=== PATIENT | male | born 1970 | race Caucasian/White ===

== ENCOUNTER 2017-08-24 12:42 | Emergency (ER) | payer SELFPAY ==
[2017-08-24 12:50] VITALS: BP 124/74; BMI 23.6
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
[2017-08-24 14:13] LABS: BASOPHILS % (AUTO) 0.4 % (0.2-1.0); EOSINOPHILS # (AUTO) 0.2 x10^3/uL (0.0-0.2); EOSINOPHILS % (AUTO) 4.3 % (0.9-2.9); HEMATOCRIT 41.9 % (42.0-54.0); HEMOGLOBIN 14.9 g/dL (13.5-18.0); LYMPHOCYTES # (AUTO) 1.4 X10^3/uL (1.3-2.9); LYMPHOCYTES % (AUTO) 30.4 % (21.0-51.0); MEAN CORPUSCULAR HEMOGLOBIN 33.5 pg (27.0-34.0); MEAN CORPUSCULAR HGB CONC 35.6 g/dL (33.0-35.0); MEAN CORPUSCULAR VOLUME 94.1 fL (80.0-100.0); MEAN PLATELET VOLUME 8.5 fL (7.4-11.0); MONOCYTES # (AUTO) 0.4 x10^3/uL (0.3-0.8); MONOCYTES % (AUTO) 8.7 % (0.0-13.0); NEUTROPHILS # (AUTO) 2.5 x10^3/uL (2.2-4.8); NEUTROPHILS % (AUTO) 56.2 % (42.0-75.0); PLATELET COUNT 55 X10^3/uL (150.0-450.0); RED BLOOD COUNT 4.45 X10^6/uL (4.7-6.0); RED CELL DISTRIBUTION WIDTH 14.9 % (11.6-16.5); WHITE BLOOD COUNT 4.5 X10^3/uL (3.6-10.0)
[2017-08-24 14:20] LABS: ALANINE AMINOTRANSFERASE 202 Units/L (12-78); ALBUMIN 3.4 g/dL (3.4-5.0); ALKALINE PHOSPHATASE 119 Units/L (46-116); AMYLASE 81 Units/L (25-115); ASPARTATE AMINO TRANSFERASE 199 Units/L (15-37); BLOOD ALCOHOL < 3 mg/dL (0-19.9); BLOOD UREA NITROGEN 13 mg/dL (7-18); CALCIUM 8.2 mg/dL (8.5-10.1); CARBON DIOXIDE 27.2 mmol/L (21-32); CHLORIDE 105 mmol/L (98-107); COR NA(FOR HYPERGLY) 138 mmol/L (136-145); CREATININE 0.89 mg/dL (0.70-1.30); LIPASE 247 Units/L (73-393); SODIUM 138 mmol/L (136-145); TOTAL PROTEIN 6.6 g/dL (6.4-8.2); eGFR BLACK RACES > 60 (>60); eGFR NON BLACK RACES > 60 (>60)
[2017-08-24 14:42] LABS: BILIRUBIN,URINE 2+ (NEGATIVE); BLOOD/HEMOGLOBIN,URINE NEGATIVE (NEGATIVE); GLUCOSE, URINE NEGATIVE (NEGATIVE); KETONES,URINE NEGATIVE (NEGATIVE); LEUKOCYTE ESTERASE ,URINE 2+ (NEGATIVE); NITRITES,URINE NEGATIVE (NEGATIVE); PH,URINE 6.5 (5.0 - 8.0); PROTEIN,URINE 1+ (NEGATIVE); UROBILINOGEN,URINE 4+ (NORMAL)
[2017-08-24 14:53] LABS: APPEARANCE,URINE SLIGHTLY HAZY (CLEAR); COLOR,URINE ORANGE (YELLOW)
[2017-08-24 14:54] LABS: BACTERIA,URINE TRACE /HPF (NEGATIVE); RBC,URINE NONE SEEN /HPF (NONE SEEN); SQUAMOUS EPITHELIAL CELL,UR FEW /HPF (NEGATIVE)
[2017-08-24] MEDS ORDERED: CHRONULAC PO STA (15:21)
[2017-08-24] MEDS ORDERED: CHRONULAC ONE (15:30)
== END 2017-08-24 15:53 | disposition home or self-care (01) ==
LOC: ER 12:55
DX: F10.10 Alcohol abuse, uncomplicated (principal); K72.90 Hepatic failure, unspecified without coma; E72.20 Disorder of urea cycle metabolism, unspecified; K74.60 Unspecified cirrhosis of liver; F15.10 Other stimulant abuse, uncomplicated
CPT/HCPCS: 36415; 80053; 80307; 81001; 82140; 82150; 83690; 85025; 99282; G0434; G6040

== ENCOUNTER 2018-12-11 14:30 | Inpatient (IN) ==
[2018-12-11] MEDS ORDERED: ZOSYN VIAL 3.375 GRAMS 3.375 G in NS 100 ML IV + SPIKE MINIBAG* 100 ML IV ONE (14:42)
[2018-12-11] MEDS ORDERED: VANCOMYCIN HCL 1 GM VIAL 1 G in D5W 250 ML IV 250 ML IV ONE (14:42)
--- NOTE | 2018-12-11 14:42 | DR.EXTPAIN ---
HPI Time seen Time Seen by Provider: 12/11/18 14:36 PCP Primary Care Physician: YORDY Complaint/Symptoms Chief Complaint Doctor Comments: Pt presented for right foot and leg pain. 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 He reports for the past 3-4d having drainage from wound site and now increase swelling, warmth, pain up to his knee. The pain is 10/10. Reports some chills, but denies any fever, sob, cp. Chief Complaint:: PT CUT THE OUTSIDE OF HIS RIGHT HEEL WITH A PIECE OF TILE ONE WEEK AGO. SINCE THEN HE HAS NOTICED THE ENTIRE LEG HAS BEEN SWOLLEN AND HE HAS REDNESS ALL THE WAY UP INTO THE RIGHT THIGH. PT STATES THAT THE LEG ONLY HURTS HIM WHEN HE INITIALLY GETS UP OUT OF BED IN THE MORNING AND THE DAY PROGRESSES HE DOESN'T HAVE ANY PAIN. Self Treatment fo Chief Complaint: TOOK MOTRIN WITH NO RELIEF Nurses notes reviewed Nurses Notes Review: Yes Source History Provided: Patient Mode of arrival Mode of Arrival: Ambulatory Timing Onset of Chief Complaint: 12/03/18 Context History of: None Associated signs and symptoms Associated Signs and Symptoms: [place]ie[place] Body and Swelling PMH PMH Past Medical History: No Past Surgical History: No Family History History of Family Medical Conditions: Yes Family Medical History: Diabetes Mellitus, [place], Coronary Artery Disease and Hypertension Social History Does patient currently use any type of tobacco product: Yes Have you used tobacco products in the last 12 months: Yes Type of Tobacco Use: Cigarettes Does any household member use tobacco: Yes Alcohol Use: Occasionally Do you use any recreational Drugs:: No Lives With: Family Lives Where: Home infectious screening In the last 2 months have you had wt loss of >10#?: NO Have you had fever, night sweats or hemotysis?: No Have you traveled outside the country in the last 6 months?: No Isolation: Standard ROS Review of Systems Constitutional: negative Chills, Fever and Loss of Appetite Eyes: negative Blurred Vision ENTM: negative Nose Congestion Respiratoy: negative Short of Breath Cardiovascular: negative Chest Pain Gastrointestinal/Abdominal: negative Abdominal Pain, Nausea and Vomiting Genitourinary: negative Hematuria Neurological: negative Numbness, Weakness and Speech Problem Musculoskeletal: Joint Pain, Joint Swelling, Muscle Pain, Right, Ankle and Foot Integumentary: Rash and Wound (right lateral heel) Hematologic/Lymphatic: negative Lymphadenopathy Endocrine: negative Decreased Appetite Psychiatric: negative Depression All Other Systems: Reviewed and Negative PE Vital Signs Vitals: Temperature 98.6 F Pulse Rate 115 Respiratory Rate 20 Blood Pressure 145/78 O2 Sat by Pulse Oximetry 98 General Limitations: No Limitations Head Head Exam: Normal Inspection and Normocephalic Eyes Eye exam: Normal Appearance and EOMI; negative Scleral Icterus ENT ENT Exam: Normal Exam, Normal Oropharynx and Mucous Membranes Moist Neck Neck Exam: Normal Inspection and Full ROM Respiratory Respiratory Exam: Normal Lung Sounds Bilat Respiratory Exam: Bilateral: Clear to Auscultation Cardiovascular Cardiovascular Exam: Regular Rate, Tachycardia and Normal Heart Sounds Abdominal Exam Abdominal Exam: Soft; negative Tenderness Extremities Extremities Exam: Tenderness (right foot/ankle), Normal Capillary Refill and Joint Swelling (right foot/ankle); negative Normal Inspection and Calf Tenderness Lower Extremities Lower Leg Exam: Tenderness and Erythema (right) Ankle Exam: Swelling (right) and Erythema Foot/Toe Exam: Tenderness, Swelling and Erythema Gait Exam: Observed and Normal Back Back Exam: Normal Inspection and Full ROM Neurological Neurological Exam: Alert, Oriented X3, Normal Gait and Reflexes Normal; negative Motor Sensory Deficit Psychiatric Psychiatric Exam: Normal Affect and Normal Mood Skin Skin Exam: Warm, Dry, Intact and Erythema Type of Lesion: Foreign Body Distribution: RLE Description: Erythematous and Swelling; negative Discharge, Fluctuant and Indurated Front/Back of Body, Lg ([place]): 1. small puncture wound with surrounding warmth, tenderness, erythema, swelling extending to knee. MDM Differential Diagnosis Differential Diagnosis: Other (cellulitis, retain FB, OM, abscess) COURSE Reevaluation 1st: Unchanged (pt has no pain. d/w results. Will continue IVF hydration, IV abx and will admit.) Consultation Consultation Comments: 15:[address] Burch and will admit and see in hospital. Education/Counseling Education/Counseling: Patient, Education and Counseling Educated On: Treatment, Diagnosis, Prognosis and Needs for Follow Up (pcp) ROR Labs Reviewed Laboratory Results Reviewed?: Yes Result Diagrams: 12/11/18 15:01 12/11/18 15:01 Laboratory: 12/11/18 15:17 Foot - Right Gram Stain - Final WBC 7.5 X10^3/uL (3.6-10.0) 12/11/18 15:01 RBC 4.21 X10^6/uL (4.7-6.0) L 12/11/18 15:01 Hgb 14.6 g/dL (13.5-18.0) 12/11/18 15:01 Hct 42.0 % (42.0-54.0) 12/11/18 15:01 MCV 99.7 fL (80.0-100.0) 12/11/18 15: MCH 34.8 pg (27.0-34.0) H 12/11/18 15: MCHC 34.9 g/dL (33.0-35.0) 12/11/18 15: RDW 14.6 % (11.6-16.5) 12/11/18 15: Plt Count 43 X10^3/uL (150.0-450.0) L 12/11/18 15: Plt Count Comment Decreased (ADEQUATE) 12/11/18 15: MPV 8.8 fL (7.4-11.0) 12/11/18 15:01 Neut % (Auto) 79.8 % (42.0-75.0) H 12/11/18 15:01 Lymph % (Auto) 11.4 % (21.0-51.0) L 12/11/18 15:01 [place] % (Auto) 7.4 % (0.0-13.0) 12/11/18 15: Eos % (Auto) 1.2 % (0.9-2.9) 12/11/18 15:01 Baso % (Auto) 0.2 % (0.2-1.0) 12/11/18 15:01 Neut # (Auto) 6.0 x10^3/uL (2.2-4.8) H 12/11/18 15:01 Lymph # (Auto) 0.8 X10^3/uL (1.3-2.9) L 12/11/18 15:01 [place] # (Auto) 0.6 x10^3/uL (0.3-0.8) 12/11/18 15:01 Eos # (Auto) 0.1 x10^3/uL (0.0-0.2) 12/11/18 15:01 Baso # (Auto) 0.0 X10^3/uL (0.0-0.1) 12/11/18 15:01 Absolute Nucleated RBC 0.0 /100WBC 12/11/18 15:01 Plt Morphology Comment Normal (NORMAL) 12/11/18 15:01 RBC Morphology Normal (NORMAL) 12/11/18 15:01 Sodium 138 mmol/L (136-145) 12/11/18 15:01 Corrected Sodium 144 mmol/L (136-145) 12/11/18 15:01 Potassium 4.5 mmol/L (3.5-5.1) 12/11/18 15:01 Chloride 105 mmol/L (98-107) 12/11/18 15:01 Carbon Dioxide 23.6 mmol/L (21-32) 12/11/18 15:01 BUN 16 mg/dL (7-18) 12/11/18 15:01 Creatinine 1.17 mg/dL (0.70-1.30) 12/11/18 15:01 Est GFR (MDRD) Af Amer > 60 (>60) 12/11/18 15:01 Est GFR (MDRD) Non-Af > 60 (>60) 12/11/18 15:01 Glucose 353 mg/dL (65-99) H 12/11/18 15:01 Hemoglobin A1c 5.5 % 12/11/18 15:01 Calcium 8.2 mg/dL (8.5-10.1) L 12/11/18 15:01 C-Reactive Protein 46.80 mg/L (0-3.0) H 12/11/18 15:01 Acetone, Semi-Quant Negative (NEGATIVE) 12/11/18 15:01 Other Results Comments: WBC 7.5 PLt 43, Glu 353 CRP 46, acetone negative, ESR pending XRAY XRAY Interpreted by: Radiologist XRAY Findings: right foot: STS w/o FB or gas Opioid Opioid Risk Tool Total: 0 Total Score Risk Category: Low Risk Copyright: Ciaran BRENNAN predicting aberrant behaviors Diagnosis Discharge Problem: Cellulitis of foot, right, Thrombocytopenia, New onset type 2 diabetes mellitus, Acute hyperglycemia Instructions Forms: Excuse From Work ADDITIONAL NOTES Additional Notes Additional Notes: I have personally reviewed your medications, lab results, imaging and time was spent discussion results. Patient educated on their health issue. They verbalized their understanding and agreed with plan of care. Condition: Stable Disposition: Admission
[2018-12-11] MEDS ORDERED: NS 100 ML IV + SPIKE MINIBAG* 100 ML ONE (15:04)
[2018-12-11] MEDS ORDERED: NS 250 ML IV 250 ML ONE ×3 (15:04→21:28)
[2018-12-11] MEDS ORDERED: ZOSYN VIAL 3.375 GRAMS IV ONE (15:04)
[2018-12-11] MEDS ORDERED: VANCOMYCIN HCL 1 GM VIAL ONE ×2 (15:04→21:28)
--- NOTE | 2018-12-11 15:07 | RAD ---
Three views of the right foot. Indication: Right foot pain with lateral wound Findings: There is soft tissue swelling within the lateral foot; however there is no soft tissue gas or foreign body identified. No acute fracture or dislocation. No cortical destruction or periosteal reaction identified to suggest osteomyelitis. Lisfranc joint is normal. Impression: Soft tissue swelling within the lateral foot without evidence of fracture, dislocation, soft tissue gas or radiopaque foreign body within the right foot. Reported By:
[2018-12-11 15:20] LABS: BASOPHILS % (AUTO) 0.2 % (0.2-1.0); EOSINOPHILS # (AUTO) 0.1 x10^3/uL (0.0-0.2); EOSINOPHILS % (AUTO) 1.2 % (0.9-2.9); HEMOGLOBIN 14.6 g/dL (13.5-18.0); LYMPHOCYTES # (AUTO) 0.8 X10^3/uL (1.3-2.9); LYMPHOCYTES % (AUTO) 11.4 % (21.0-51.0); MEAN CORPUSCULAR HEMOGLOBIN 34.8 pg (27.0-34.0); MEAN CORPUSCULAR HGB CONC 34.9 g/dL (33.0-35.0); MEAN CORPUSCULAR VOLUME 99.7 fL (80.0-100.0); MEAN PLATELET VOLUME 8.8 fL (7.4-11.0); MONOCYTES # (AUTO) 0.6 x10^3/uL (0.3-0.8); MONOCYTES % (AUTO) 7.4 % (0.0-13.0); NEUTROPHILS % (AUTO) 79.8 % (42.0-75.0); PLATELET COUNT 43 X10^3/uL (150.0-450.0); RED BLOOD COUNT 4.21 X10^6/uL (4.7-6.0); RED CELL DISTRIBUTION WIDTH 14.6 % (11.6-16.5); WHITE BLOOD COUNT 7.5 X10^3/uL (3.6-10.0)
[2018-12-11 15:21] LABS: BLOOD UREA NITROGEN 16 mg/dL (7-18); CALCIUM 8.2 mg/dL (8.5-10.1); CARBON DIOXIDE 23.6 mmol/L (21-32); CHLORIDE 105 mmol/L (98-107); COR NA(FOR HYPERGLY) 144 mmol/L (136-145); CREATININE 1.17 mg/dL (0.70-1.30); SODIUM 138 mmol/L (136-145); eGFR NON BLACK RACES > 60 (>60)
[2018-12-11 15:27] LABS: PLATELET MORPHOLOGY COMMENT NORMAL (NORMAL)
[2018-12-11] MEDS ORDERED: NS 1000 ML 1,000 ML IV ONE (15:31)
[2018-12-11] MEDS ORDERED: HumuLIN R IV ONE (15:32)
[2018-12-11] MEDS ORDERED: NS 1000 ML 1,000 ML ONE ×2 (15:58→20:58)
[2018-12-11] MEDS ORDERED: HumuLIN R ONE (15:59)
[2018-12-11 17:48] LABS: ERYTHROCYTE SEDIMENTATION RATE 3 MM/HOUR (0-15)
[2018-12-11] MEDS ORDERED: HumaLOG SC PRN (17:58)
[2018-12-11] MEDS ORDERED: HumuLIN R SUBCUT PRN (20:23)
[2018-12-11] MEDS ORDERED: VANCOMYCIN HCL 1 GM VIAL 1 G in D5W 250 ML IV 250 ML IV SCH (21:00)
[2018-12-11] MEDS: SNACK - Diabetic Appropriate PO SCH (21:25)
[2018-12-11] MEDS: ZOSYN VIAL 3.375 GRAMS 3.375 G in NS 100 ML IV + SPIKE MINIBAG* 100 ML IV SCH (21:27)
[2018-12-11] MEDS ORDERED: VANCOMYCIN HCL 500 MG VIAL ONE (21:28)
[2018-12-11] MEDS ORDERED: VANCOMYCIN HCL 500 MG VIAL 250 MG, VANCOMYCIN HCL 1 GM VIAL 1 G in D5W 250 ML IV 250 ML IV SCH (22:00)
[2018-12-11] MEDS ORDERED: ZOSYN VIAL 3.375 GRAMS IV SCH (22:00)
[2018-12-12] MEDS ORDERED: VANCOMYCIN HCL 500 MG VIAL 250 MG, VANCOMYCIN HCL 1 GM VIAL 1 G in D5W 250 ML IV 250 ML IV SCH ×3
[2018-12-12 05:08] LABS: BASOPHILS % (AUTO) 0.5 % (0.2-1.0); BLOOD UREA NITROGEN 11 mg/dL (7-18); CALCIUM 7.4 mg/dL (8.5-10.1); CARBON DIOXIDE 23.7 mmol/L (21-32); CHLORIDE 107 mmol/L (98-107); COR NA(FOR HYPERGLY) 143 mmol/L (136-145); CREATININE 0.95 mg/dL (0.70-1.30); EOSINOPHILS # (AUTO) 0.2 x10^3/uL (0.0-0.2); EOSINOPHILS % (AUTO) 3.4 % (0.9-2.9); HEMOGLOBIN 13.3 g/dL (13.5-18.0); LYMPHOCYTES # (AUTO) 1.2 X10^3/uL (1.3-2.9); LYMPHOCYTES % (AUTO) 21.3 % (21.0-51.0); MEAN CORPUSCULAR VOLUME 100.2 fL (80.0-100.0); MEAN PLATELET VOLUME 9.8 fL (7.4-11.0); MONOCYTES # (AUTO) 0.5 x10^3/uL (0.3-0.8); MONOCYTES % (AUTO) 8.6 % (0.0-13.0); NEUTROPHILS # (AUTO) 3.7 x10^3/uL (2.2-4.8); NEUTROPHILS % (AUTO) 66.2 % (42.0-75.0); PLATELET COUNT 46 X10^3/uL (150.0-450.0); RED BLOOD COUNT 3.79 X10^6/uL (4.7-6.0); RED CELL DISTRIBUTION WIDTH 14.7 % (11.6-16.5); SODIUM 138 mmol/L (136-145); WHITE BLOOD COUNT 5.6 X10^3/uL (3.6-10.0); eGFR NON BLACK RACES > 60 (>60)
[2018-12-12 05:21] LABS: PLATELET MORPHOLOGY COMMENT NORMAL (NORMAL)
[2018-12-12] MEDS: ZOSYN VIAL 3.375 GRAMS 3.375 G in NS 100 ML IV + SPIKE MINIBAG* 100 ML IV SCH ×3 (05:57→22:02)
[2018-12-12] MEDS: HumuLIN R SUBCUT PRN ×3 (06:00→17:25)
[2018-12-12 08:57] VITALS: BMI 27.8
[2018-12-12] MEDS ORDERED: PHARMACY CONSULT - DOSE _____ XX SCH (09:00)
[2018-12-12] MEDS ORDERED: PREVNAR 13 IM ONE (09:00)
--- NOTE | 2018-12-12 13:41 | DR.H&P ---
H&P - History & Physical for Day of: H&P Date: 12/11/18 - Chief Complaint Chief Complaint: R LEG PAIN, REDNESS AND SWELLING, RED STREAKING UP TO RIGHT THIGH - History of Present Illness History of Present Illness: 48 WM ER ADMISSION WITH CO HAD CUT THE OUTSIDE OF HIS RIGHT HEEL WITH A PIECE OF TILE ONE WEEK AGO. SINCE THEN HE HAS NOTICED THE ENTIRE LEG HAS BEEN SWOLLEN AND HE HAS REDNESS ALL THE WAY UP INTO THE RIGHT THIGH. PT STATES THAT THE LEG ONLY HURTS HIM WHEN HE INITIALLY GETS UP OUT OF BED IN THE MORNING AND THE DAY PROGRESSES HE DOESN'T HAVE ANY PAIN. PT DENIES ANY KNOWN JOINT INJURY, DENIES HX OF HTN OR DM. PT ADMITTED FOR TREATMENT OF RLE CELLULITIS. - Past Medical History Past Medical History: GERD. denies: CHF, Coronary Artery Disease, Diabetes, Hypertension - Family History Family Medical History: Diabetes Mellitus, [place], Coronary Artery Disease, Hypertension - Social History Does patient currently use any type of tobacco product: Yes Have you used tobacco products in the last 12 months: Yes Type of Tobacco Use: Cigarettes How many years tobacco product used: 20 Does any household member use tobacco: Yes Alcohol Use: Occasionally Drug Use: None - Medications Home Medications: No Known Drug Allergies Allergy (Verified 08/24/17 12:43) CONTINUE taking the following medications NK 12/11/18 [History] - Review of Systems Constitutional: denies: Fever Eyes: No Symptoms Reported ENT: No Symptoms Reported Respiratory: No Symptoms Reported Cardiovascular: Edema Gastrointestinal: No Symptoms Reported Genitourinary: No Symptoms Reported Musculoskeletal: Leg Pain Skin: Wound Neurological: No Symptoms Reported - Physical Exam Vital Signs: Temperature 98.4 F Pulse Rate [Right Brachial] 96 Pulse Rate 115 Respiratory Rate 18 Blood Pressure [Right Arm] 140/65 Blood Pressure 145/78 O2 Sat by Pulse Oximetry 96 Oriented: Normal Eyes: Normal Ear: Normal Nose: Normal Throat: Normal Respiratory: Clear Throughout Cardiovascular: Edema (RLE EDEMA +2) Skin: Red, Tender (RLE, FOOT AND ANKLE, EDEMA UP TO [place]OREL AREA, RED STREAKING FROM ANKLE TO RIGHT INNER THIGH), Hot Musculoskeletal: Right, Leg, Swelling, Tender Psychiatric: Anxiety Affect: Anxious Speech Pattern: Clear, Appropriate - Assessment/Plan (1) Cellulitis of foot, right Status: Acute Plan: ADMIT BLOOD CULTURES, ELEVATE RLE. XRAY RLE IN ER. IV VANCOMYCIN, PAIN CONTROL. BLOOD SUGAR CONTROL (2) Hyperglycemia Status: Acute Plan: SSI COVERAGE, MONITOR BLOOD SUGAR. A1C 5.5 - Allergies Allergies/Adverse Reactions: Allergies Allergy/AdvReac Type Severity Reaction Status Date / Time No Known Drug Allergies Allergy Verified 08/24/17 12:43
[2018-12-12] MEDS: VANCOMYCIN HCL 1 GM VIAL 1 G in NS 250 ML IV 250 ML IV SCH ×2 (14:34→22:02)
--- NOTE | 2018-12-12 15:26 | PCM.PROG ---
Progress Note - Progress Note for Day of Date of Exam: 12/12/18 - Subjective Subjective: 48 WM ER ADMISSION ON 06/13 WITH CO RLE PAIN, REDNESS AND SWELLING. PT HAD REPORT OF CUT BY PIECE OF TILE ABOUT 1 WEEK PRIOR TO ONSET OF EDEMA AND CELLULITIS. PT HAD XRAY OF RLE IN ER AND PT DENIES ANY JOINT INJURY, KNEE OR ANKLE. PT WAS STARTED ON IV VANCOMYCIN IN THE ER. PT WBC 5.6, CRP DECREASED TO 37.7 TODAY. PT CONTINUES WITH REDNESS FROM LOWER LEG TO RIGHT INNER THIGH. PT HAS ELEVATED BLOOD SUGAR WITH NO HISTORY OF DIABETES. PT A1C 5.5. HE IS CURRENTLY ON SSI, WILL START ON PO METFORMIN AND ENCOURAGE ORAL HYDRATION. PLAN TO OBTAIN LE US R/O DVT AND LOVENOX PROPHALAXIS - Past Medical Family Social History Past Med/Fam/Surg Hx: No changes since H&P Allergies: Allergies No Known Drug Allergies Allergy (Verified 08/24/17 12:43) - Review of Systems ROS: No change since H&P - Vital Signs and I&O's Vital Signs: Temperature 98.4 F Pulse Rate [Right Brachial] 96 Pulse Rate 115 Respiratory Rate 18 Blood Pressure [Right Arm] 140/65 Blood Pressure 145/78 O2 Sat by Pulse Oximetry 96 Intake and Output: Intake & Output 12/10/18 12/11/18 12/12/18 12/13/18 11:59 11:59 11:59 11:59 Intake Total 1510 / 1510 Balance 1510 / 1510 - Physical Exam Oriented: Normal Eyes: Normal Ear: Normal Nose: Normal Throat: Normal Respiratory: Normal Cardiovascular: Edema (RLE EDEMA +2) Tenderness: Normal Skin: Red, Tender (RLE, FOOT AND ANKLE, EDEMA UP TO MOREL AREA, RED STREAKING FROM ANKLE TO RIGHT INNER THIGH), Hot Musculoskeletal: Right, Leg, Swelling, Tender Psychiatric: Anxiety Affect: Anxious Speech Pattern: Clear, Appropriate - Laboratory and Diagnostics Result Diagrams: 12/12/18 04:43 12/12/18 04:43 Labs: 12/11/18 15:17 Foot - Right Gram Stain - Final 12/11/18 15:17 Foot - Right Wound Culture - Preliminary Laboratory WBC 5.6 X10^3/uL (3.6-10.0) 12/12/18 04:43 RBC 3.79 X10^6/uL (4.7-6.0) L 12/12/18 04:43 Hgb 13.3 g/dL (13.5-18.0) L 12/12/18 04:43 Hct 38.0 % (42.0-54.0) L 12/12/18 04:43 MCV 100.2 fL (80.0-100.0) H 12/12/18 04:43 MCH 35.0 pg (27.0-34.0) H 12/12/18 04:43 MCHC 35.0 g/dL (33.0-35.0) 12/12/18 04:43 RDW 14.7 % (11.6-16.5) 12/12/18 04:43 Plt Count 46 X10^3/uL (150.0-450.0) L 12/12/18 04:43 Plt Count Comment Decreased (ADEQUATE) 12/12/18 04:43 MPV 9.8 fL (7.4-11.0) 12/12/18 04:43 Neut % (Auto) 66.2 % (42.0-75.0) 12/12/18 04:43 Lymph % (Auto) 21.3 % (21.0-51.0) 12/12/18 04:43 [place] % (Auto) 8.6 % (0.0-13.0) 12/12/18 04:43 Eos % (Auto) 3.4 % (0.9-2.9) H 12/12/18 04:43 Baso % (Auto) 0.5 % (0.2-1.0) 12/12/18 04:43 Neut # (Auto) 3.7 x10^3/uL (2.2-4.8) 12/12/18 04:43 Lymph # (Auto) 1.2 X10^3/uL (1.3-2.9) L 12/12/18 04:43 [place] # (Auto) 0.5 x10^3/uL (0.3-0.8) 12/12/18 04:43 Eos # (Auto) 0.2 x10^3/uL (0.0-0.2) 12/12/18 04:43 Baso # (Auto) 0.0 X10^3/uL (0.0-0.1) 12/12/18 04:43 Absolute Nucleated RBC 0.1 /100WBC 12/12/18 04:43 Plt Morphology Comment Normal (NORMAL) 12/12/18 04:43 RBC Morphology Normal (NORMAL) 12/12/18 04:43 ESR 3 MM/HOUR (0-15) 12/11/18 15:01 Sodium 138 mmol/L (136-145) 12/12/18 04:43 Corrected Sodium 143 mmol/L (136-145) 12/12/18 04:43 Potassium 4.1 mmol/L (3.5-5.1) 12/12/18 04:43 Chloride 107 mmol/L (98-107) 12/12/18 04:43 Carbon Dioxide 23.7 mmol/L (21-32) 12/12/18 04:43 BUN 11 mg/dL (7-18) 12/12/18 04:43 Creatinine 0.95 mg/dL (0.70-1.30) 12/12/18 04:43 Est GFR (MDRD) Af Amer > 60 (>60) 12/12/18 04:43 Est GFR (MDRD) Non-Af > 60 (>60) 12/12/18 04:43 Glucose 315 mg/dL (65-99) H 12/12/18 04:43 POC Glucose (mg/dL) 214 mg/dL (65-99) H 12/12/18 11:24 Hemoglobin A1c 5.5 % 12/11/18 15:01 Calcium 7.4 mg/dL (8.5-10.1) L 12/12/18 04:43 C-Reactive Protein 32.70 mg/L (0-3.0) H 12/12/18 04:43 Acetone, Semi-Quant Negative (NEGATIVE) 12/11/18 15:01 - Plan (1) Cellulitis of foot, right Status: Acute Plan: BLOOD CULTURES COLLECTED IN THE ER, ELEVATE RLE. XRAY RLE IN ER, WILL OBTAIN US RLE R/O DVT/PHLEBITIS. IV VANCOMYCIN, PAIN CONTROL. BLOOD SUGAR CONTROL (2) Hyperglycemia Status: Acute Plan: SSI COVERAGE, MONITOR BLOOD SUGAR. A1C 5.5
--- NOTE | 2018-12-12 16:02 | VAS ---
History: Right lower extremity edema and pain Study: Ultrasound of the deep veins of the lower extremity evaluated from the common femoral vein to the popliteal vein Findings: The deep veins are widely patent and show appropriate compression and augmentation. Impression: No evidence for right lower extremity deep venous thrombosis Reported By:
[2018-12-12] MEDS ORDERED: GLUCOPHAGE ONE (17:17)
[2018-12-12] MEDS: GLUCOPHAGE PO SCH (17:25)
[2018-12-12] MEDS ORDERED: SNACK - Diabetic Appropriate PO SCH (20:00)
[2018-12-12] MEDS: SNACK - Diabetic Appropriate PO SCH (21:06)
[2018-12-13 05:20] LABS: EOSINOPHILS # (AUTO) 0.2 x10^3/uL (0.0-0.2); HEMATOCRIT 39.6 % (42.0-54.0); HEMOGLOBIN 13.8 g/dL (13.5-18.0); LYMPHOCYTES # (AUTO) 1.3 X10^3/uL (1.3-2.9); LYMPHOCYTES % (AUTO) 29.2 % (21.0-51.0); MEAN CORPUSCULAR HGB CONC 34.9 g/dL (33.0-35.0); MEAN CORPUSCULAR VOLUME 100.3 fL (80.0-100.0); MEAN PLATELET VOLUME 9.7 fL (7.4-11.0); MONOCYTES # (AUTO) 0.5 x10^3/uL (0.3-0.8); MONOCYTES % (AUTO) 10.2 % (0.0-13.0); NEUTROPHILS # (AUTO) 2.4 x10^3/uL (2.2-4.8); NEUTROPHILS % (AUTO) 54.6 % (42.0-75.0); PLATELET COUNT 51 X10^3/uL (150.0-450.0); RED BLOOD COUNT 3.95 X10^6/uL (4.7-6.0); RED CELL DISTRIBUTION WIDTH 14.8 % (11.6-16.5); WHITE BLOOD COUNT 4.4 X10^3/uL (3.6-10.0)
[2018-12-13 05:35] LABS: ALANINE AMINOTRANSFERASE 20 Units/L (12-78); ALKALINE PHOSPHATASE 113 Units/L (46-116); ASPARTATE AMINO TRANSFERASE 32 Units/L (15-37); BLOOD UREA NITROGEN 11 mg/dL (7-18); CALCIUM 7.2 mg/dL (8.5-10.1); CARBON DIOXIDE 24.6 mmol/L (21-32); CHLORIDE 106 mmol/L (98-107); COR CA(FOR HYPOALB) 8.8 mg/dL (8.5-10.1); COR NA(FOR HYPERGLY) 139 mmol/L (136-145); CREATININE 0.84 mg/dL (0.70-1.30); SODIUM 137 mmol/L (136-145); TOTAL PROTEIN 4.8 g/dL (6.4-8.2); eGFR NON BLACK RACES > 60 (>60)
[2018-12-13] MEDS ORDERED: GLUCOPHAGE ONE ×2 (05:38→16:52)
[2018-12-13] MEDS ORDERED: POTASSIUM CHLORIDE LIQ 20 MEQ UDC PO PRN (05:54)
[2018-12-13] MEDS ORDERED: K-RIDER 10 MEQ/NS 100 ML 10 MEQ/100 ML BAG IV PRN (05:54)
[2018-12-13] MEDS ORDERED: MICRO K EXTEN CAP 10 MEQ PO PRN (05:54)
[2018-12-13] MEDS ORDERED: POTASSIUM CHL 40 MEQ/NS 0.45% 500 ML IV PRN (05:54)
[2018-12-13] MEDS ORDERED: POTASSIUM CHL 60 MEQ/NS 0.45% 500 ML IV PRN (05:54)
[2018-12-13] MEDS ORDERED: KLOR-CON PO PRN (05:54)
[2018-12-13] MEDS ORDERED: K-DUR TAB 20 MEQ PO PRN (05:54)
[2018-12-13] MEDS: VANCOMYCIN HCL 1 GM VIAL 1 G in NS 250 ML IV 250 ML IV SCH ×3 (06:31→21:01)
[2018-12-13] MEDS: GLUCOPHAGE PO SCH ×2 (06:31→18:20)
[2018-12-13] MEDS: ZOSYN VIAL 3.375 GRAMS 3.375 G in NS 100 ML IV + SPIKE MINIBAG* 100 ML IV SCH ×3 (06:32→21:01)
[2018-12-13 07:28] LABS: AMYLASE 70 Units/L (25-115); LIPASE 468 Units/L (73-393)
[2018-12-13] MEDS ORDERED: NS 100 ML IV 100 ML ONE (10:06)
[2018-12-13] MEDS: MAGNESIUM SULFATE 1 GRAM/100 mL PREMIX 1 GM/100 ML BAG IV PRN ×3 (10:51→13:00)
--- NOTE | 2018-12-13 12:06 | CT ---
History: Pain Exam: CT abdomen and pelvis with contrast Comparison: None Technique: Axial spiral images were obtained from lung bases through the pubic symphysis after administration of IV and oral contrast. Automated dose control was utilized. Findings: There are small bibasilar pleural effusions and associated bibasilar opacities posteriorly . The liver is small and cirrhotic in appearance with a nodular contour to the capsule. The gallbladder is normal size with a calcification near the neck region with no wall thickening. The spleen measures 17 cm in length and is normal density with extensive large collateral vessels along the hilar region of the spleen extending inferiorly and laterally throughout the upper abdomen . The bile ducts and pancreas are normal. The adrenals are normal. Kidneys are normal size and function normally with no hydronephrosis or renal masses and no urinary obstruction. The ureters are normal caliber . The appendix is normal . The bladder is unremarkable. There is mild feces scattered in the colon with no bowel obstruction. No adenopathy or ascites is seen. The bones are intact with no aggressive osseous lesion seen. IMPRESSION: Cholelithiasis. Small cirrhotic liver and moderately severe splenomegaly with collateral vessels throughout the upper abdomen suggestive of severe portal hypertension. No hydronephrosis or urinary obstruction . Mild constipation with no bowel obstruction. Small bibasilar pleural effusions and associated bibasilar atelectasis or infiltrates posteriorly. Reported By:
[2018-12-13] MEDS ORDERED: PHARMACY COMMENT IV NR (13:30)
[2018-12-13 14:55] LABS: CREATININE 0.88 mg/dL (0.70-1.30); VANCOMYCIN,TROUGH 6.3 ug/mL (15-20)
[2018-12-13] MEDS: HumuLIN R SUBCUT PRN ×2 (18:37→20:53)
[2018-12-13] MEDS: SNACK - Diabetic Appropriate PO SCH (20:54)
[2018-12-14 05:01] LABS: BASOPHILS % (AUTO) 0.8 % (0.2-1.0); EOSINOPHILS # (AUTO) 0.2 x10^3/uL (0.0-0.2); EOSINOPHILS % (AUTO) 6.2 % (0.9-2.9); HEMATOCRIT 40.2 % (42.0-54.0); HEMOGLOBIN 14.1 g/dL (13.5-18.0); LYMPHOCYTES # (AUTO) 1.1 X10^3/uL (1.3-2.9); MEAN CORPUSCULAR HEMOGLOBIN 34.6 pg (27.0-34.0); MEAN CORPUSCULAR HGB CONC 35.1 g/dL (33.0-35.0); MEAN CORPUSCULAR VOLUME 98.6 fL (80.0-100.0); MEAN PLATELET VOLUME 9.3 fL (7.4-11.0); MONOCYTES # (AUTO) 0.4 x10^3/uL (0.3-0.8); MONOCYTES % (AUTO) 9.6 % (0.0-13.0); NEUTROPHILS # (AUTO) 2.2 x10^3/uL (2.2-4.8); NEUTROPHILS % (AUTO) 55.4 % (42.0-75.0); PLATELET COUNT 57 X10^3/uL (150.0-450.0); RED BLOOD COUNT 4.08 X10^6/uL (4.7-6.0); RED CELL DISTRIBUTION WIDTH 14.3 % (11.6-16.5); WHITE BLOOD COUNT 3.9 X10^3/uL (3.6-10.0)
[2018-12-14 05:12] LABS: ALANINE AMINOTRANSFERASE 20 Units/L (12-78); ALKALINE PHOSPHATASE 123 Units/L (46-116); ASPARTATE AMINO TRANSFERASE 34 Units/L (15-37); BLOOD UREA NITROGEN 9 mg/dL (7-18); CALCIUM 7.4 mg/dL (8.5-10.1); CHLORIDE 106 mmol/L (98-107); COR NA(FOR HYPERGLY) 139 mmol/L (136-145); CREATININE 0.81 mg/dL (0.70-1.30); MAGNESIUM 1.8 mg/dL (1.7-2.9); SODIUM 137 mmol/L (136-145); TOTAL PROTEIN 4.8 g/dL (6.4-8.2); eGFR NON BLACK RACES > 60 (>60)
[2018-12-14] MEDS: VANCOMYCIN HCL 1 GM VIAL 1 G in NS 250 ML IV 250 ML IV SCH ×2 (06:07→15:11)
[2018-12-14] MEDS: ZOSYN VIAL 3.375 GRAMS 3.375 G in NS 100 ML IV + SPIKE MINIBAG* 100 ML IV SCH ×3 (06:08→21:00)
[2018-12-14] MEDS: HumuLIN R SUBCUT PRN ×3 (06:09→17:00)
[2018-12-14 07:46] LABS: AMYLASE 89 Units/L (25-115); LIPASE 590 Units/L (73-393)
[2018-12-14] MEDS ORDERED: BACTRIM DS TAB PO ONE (12:19)
[2018-12-14] MEDS: BACTRIM DS TAB PO SCH ×2 (12:20→20:37)
[2018-12-14] MEDS ORDERED: LASIX IVP ONE ×2 (13:32→16:53)
--- NOTE | 2018-12-14 13:38 | PCM.PROG ---
Progress Note - Progress Note for Day of Date of Exam: 12/13/18 - Subjective Subjective: 48 WM ER ADMISSION ON 06/13 WITH CO RLE PAIN, REDNESS AND SWELLING. PT HAD REPORT OF CUT BY PIECE OF TILE ABOUT 1 WEEK PRIOR TO ONSET OF EDEMA AND CELLULITIS. PT HAD XRAY OF RLE IN ER AND PT DENIES ANY JOINT INJURY, KNEE OR ANKLE. PT WAS STARTED ON IV VANCOMYCIN IN THE ER.PT CONTINUES WITH REDNESS FROM LOWER LEG TO RIGHT INNER THIGH. PT HAS ELEVATED BLOOD SUGAR WITH NO HISTORY OF DIABETES. PT A1C 5.5. HE IS CURRENTLY ON SSI AND METFORMIN. PT HAS HEPATOMEGALY AND CT ABD PELVIS ORDERED FOR TODAY WITH AMYLASE AND LIPASE. PT REPORTS HX OF ETOH ABUSE AND REPORTS HE WAS TOLD HE HAD LIVER PROBLEMS IN THE PAST. PLATELETS 51., CHECKED INR AND NO DVT PROPHALAXIS USED - Past Medical Family Social History Past Med/Fam/Surg Hx: No changes since H&P Allergies: Allergies No Known Drug Allergies Allergy (Verified 08/24/17 12:43) - Review of Systems ROS: No change since H&P - Vital Signs and I&O's Vital Signs: Temperature 98.7 F Pulse Rate [Right Brachial] 91 Pulse Rate 115 Respiratory Rate 18 Blood Pressure [Right Arm] 143/76 Blood Pressure 145/78 O2 Sat by Pulse Oximetry 96 Intake and Output: Intake & Output 12/12/18 12/13/18 12/14/18 12/15/18 11:59 11:59 11:59 11:59 Intake Total 1510 / 1510 1740 / 1740 1530 / 1530 Balance 1510 / 1510 1740 / 1740 1530 / 1530 - Physical Exam Oriented: Normal Eyes: Normal Ear: Normal Nose: Normal Throat: Normal Respiratory: Normal Cardiovascular: Edema (RLE EDEMA +2) Palpation: Liver Enlarged Tenderness: RUQ, Mild Skin: Red, Tender (RLE, FOOT AND ANKLE, EDEMA UP TO MOREL AREA, RED STREAKING FROM ANKLE TO RIGHT INNER THIGH), Hot Musculoskeletal: Right, Leg, Swelling, Tender Psychiatric: Anxiety Affect: Anxious Speech Pattern: Clear, Appropriate - Laboratory and Diagnostics Result Diagrams: 12/14/18 04:41 12/14/18 04:41 Labs: 12/11/18 15:17 Foot - Right Gram Stain - Final 12/11/18 15:17 Foot - Right Wound Culture - Final 12/11/18 15:01 Blood Blood Culture - Preliminary Laboratory WBC 3.9 X10^3/uL (3.6-10.0) 12/14/18 04:41 RBC 4.08 X10^6/uL (4.7-6.0) L 12/14/18 04:41 Hgb 14.1 g/dL (13.5-18.0) 12/14/18 04:41 Hct 40.2 % (42.0-54.0) L 12/14/18 04:41 MCV 98.6 fL (80.0-100.0) 12/14/18 04:41 MCH 34.6 pg (27.0-34.0) H 12/14/18 04:41 MCHC 35.1 g/dL (33.0-35.0) H 12/14/18 04:41 RDW 14.3 % (11.6-16.5) 12/14/18 04:41 Plt Count 57 X10^3/uL (150.0-450.0) L 12/14/18 04:41 Plt Count Comment Decreased (ADEQUATE) 12/12/18 04:43 MPV 9.3 fL (7.4-11.0) 12/14/18 04:41 Neut % (Auto) 55.4 % (42.0-75.0) 12/14/18 04:41 Lymph % (Auto) 28.0 % (21.0-51.0) 12/14/18 04:41 [place] % (Auto) 9.6 % (0.0-13.0) 12/14/18 04:41 Eos % (Auto) 6.2 % (0.9-2.9) H 12/14/18 04:41 Baso % (Auto) 0.8 % (0.2-1.0) 12/14/18 04:41 Neut # (Auto) 2.2 x10^3/uL (2.2-4.8) 12/14/18 04:41 Lymph # (Auto) 1.1 X10^3/uL (1.3-2.9) L 12/14/18 04:41 [place] # (Auto) 0.4 x10^3/uL (0.3-0.8) 12/14/18 04:41 Eos # (Auto) 0.2 x10^3/uL (0.0-0.2) 12/14/18 04:41 Baso # (Auto) 0.0 X10^3/uL (0.0-0.1) 12/14/18 04:41 Absolute Nucleated RBC 0.0 /100WBC 12/14/18 04:41 Plt Morphology Comment Normal (NORMAL) 12/12/18 04:43 RBC Morphology Normal (NORMAL) 12/12/18 04:43 ESR 3 MM/HOUR (0-15) 12/11/18 15:01 PT 16.6 SECONDS (11.8-14.3) 12/14/18 04:41 INR Target Range - 12/14/18 04:41 INR 1.39 (0.8-1.3) H 12/14/18 04:41 Sodium 137 mmol/L (136-145) 12/14/18 04:41 Corrected Sodium 139 mmol/L (136-145) 12/14/18 04:41 Potassium 4.1 mmol/L (3.5-5.1) 12/14/18 04:41 Chloride 106 mmol/L (98-107) 12/14/18 04:41 Carbon Dioxide 26.0 mmol/L (21-32) 12/14/18 04:41 BUN 9 mg/dL (7-18) 12/14/18 04:41 Creatinine 0.81 mg/dL (0.70-1.30) 12/14/18 04:41 Est GFR (MDRD) Af Amer > 60 (>60) 12/14/18 04:41 Est GFR (MDRD) Non-Af > 60 (>60) 12/14/18 04:41 Glucose 183 mg/dL (65-99) H 12/14/18 04:41 POC Glucose (mg/dL) 181 mg/dL (65-99) H 12/13/18 05:38 Hemoglobin A1c 5.5 % 12/11/18 15:01 Calcium 7.4 mg/dL (8.5-10.1) L 12/14/18 04:41 Corrected Calcium 9.0 mg/dL (8.5-10.1) 12/14/18 04:41 Magnesium 1.8 mg/dL (1.7-2.9) 12/14/18 04:41 Total Bilirubin 2.80 mg/dL (0.2-1.0) H 12/14/18 04:41 AST 34 Units/L (15-37) 12/14/18 04:41 ALT 20 Units/L (12-78) 12/14/18 04:41 Alkaline Phosphatase 123 Units/L (46-116) H 12/14/18 04:41 C-Reactive Protein 32.70 mg/L (0-3.0) H 12/12/18 04:43 Total Protein 4.8 g/dL (6.4-8.2) L 12/14/18 04:41 Albumin 2.0 g/dL (3.4-5.0) L 12/14/18 04:41 Globulin 2.8 g/dL (2.5-4.5) 12/14/18 04:41 Albumin/Globulin Ratio 0.7 Ratio (1.1-2.1) L 12/14/18 04:41 Amylase 89 Units/L (25-115) 12/14/18 04:41 Lipase 590 Units/L (73-393) H 12/14/18 04:41 Vancomycin Trough 6.3 ug/mL (15-20) L 12/13/18 14:30 Acetone, Semi-Quant Negative (NEGATIVE) 12/11/18 15:01 - Plan (1) Cellulitis of foot, right Status: Acute Plan: BLOOD CULTURES COLLECTED IN THE ER, ELEVATE RLE. XRAY RLE IN ER, WILL OBTAIN US RLE R/O DVT/PHLEBITIS. IV VANCOMYCIN, PAIN CONTROL. BLOOD SUGAR CONTROL (2) Hyperglycemia Status: Acute Plan: SSI COVERAGE, MONITOR BLOOD SUGAR. A1C 5.5 (3) Diabetes Status: Acute (4) Hepatomegaly Status: Acute (5) Thrombocytopenia Status: Acute
--- NOTE | 2018-12-14 13:40 | PCM.PROG ---
Progress Note - Progress Note for Day of Date of Exam: 12/14/18 - Subjective Subjective: 48 WM ER ADMISSION ON 06/13 WITH CO RLE PAIN, REDNESS AND SWELLING. PT HAD REPORT OF CUT BY PIECE OF TILE ABOUT 1 WEEK PRIOR TO ONSET OF EDEMA AND CELLULITIS. PT HAD XRAY OF RLE IN ER AND PT DENIES ANY JOINT INJURY, KNEE OR ANKLE. PT WAS STARTED ON IV VANCOMYCIN IN THE ER.PT CONTINUES WITH REDNESS FROM LOWER LEG TO RIGHT INNER THIGH. PT HAS ELEVATED BLOOD SUGAR WITH NO HISTORY OF DIABETES. PT A1C 5.5. HE IS CURRENTLY ON SSI AND METFORMIN. PT HAS HEPATOMEGALY AND CT ABD PELVIS REVEALED HEPATIC PORTAL HYPERTENSION. SLIGHT ELEVATION IN PANREATIC ENZYMES, SUSPECT THIS IS CHRONIC. PT REPORTS HX OF ETOH ABUSE AND REPORTS HE WAS TOLD HE HAD LIVER PROBLEMS IN THE PAST. PLATELETS 57, CHECKED INR AND NO DVT PROPHALAXIS USED. STARTED ON ORAL BACTRIM AND ADDED LASIX IV X 1 DOSE - Past Medical Family Social History Past Med/Fam/Surg Hx: No changes since H&P Allergies: Allergies No Known Drug Allergies Allergy (Verified 08/24/17 12:43) - Review of Systems ROS: No change since H&P - Vital Signs and I&O's Vital Signs: Temperature 98.7 F Pulse Rate [Right Brachial] 91 Pulse Rate 115 Respiratory Rate 18 Blood Pressure [Right Arm] 143/76 Blood Pressure 145/78 O2 Sat by Pulse Oximetry 96 Intake and Output: Intake & Output 12/12/18 12/13/18 12/14/18 12/15/18 11:59 11:59 11:59 11:59 Intake Total 1510 / 1510 1740 / 1740 1530 / 1530 Balance 1510 / 1510 1740 / 1740 1530 / 1530 - Physical Exam Oriented: Normal Eyes: Normal Ear: Normal Nose: Normal Throat: Normal Respiratory: Normal Cardiovascular: Edema (RLE EDEMA +2) Tenderness: RUQ, Mild Skin: Red, Tender (RLE, FOOT AND ANKLE, EDEMA UP TO MOREL AREA, RED STREAKING FROM ANKLE TO RIGHT INNER THIGH), Hot Musculoskeletal: Right, Leg, Swelling, Tender Psychiatric: Anxiety Affect: Anxious Speech Pattern: Clear, Appropriate - Laboratory and Diagnostics Result Diagrams: 12/14/18 04:41 12/14/18 04:41 Labs: 12/11/18 15:17 Foot - Right Gram Stain - Final 12/11/18 15:17 Foot - Right Wound Culture - Final 12/11/18 15:01 Blood Blood Culture - Preliminary Laboratory WBC 3.9 X10^3/uL (3.6-10.0) 12/14/18 04:41 RBC 4.08 X10^6/uL (4.7-6.0) L 12/14/18 04:41 Hgb 14.1 g/dL (13.5-18.0) 12/14/18 04:41 Hct 40.2 % (42.0-54.0) L 12/14/18 04:41 MCV 98.6 fL (80.0-100.0) 12/14/18 04:41 MCH 34.6 pg (27.0-34.0) H 12/14/18 04:41 MCHC 35.1 g/dL (33.0-35.0) H 12/14/18 04:41 RDW 14.3 % (11.6-16.5) 12/14/18 04:41 Plt Count 57 X10^3/uL (150.0-450.0) L 12/14/18 04:41 Plt Count Comment Decreased (ADEQUATE) 12/12/18 04:43 MPV 9.3 fL (7.4-11.0) 12/14/18 04:41 Neut % (Auto) 55.4 % (42.0-75.0) 12/14/18 04:41 Lymph % (Auto) 28.0 % (21.0-51.0) 12/14/18 04:41 [place] % (Auto) 9.6 % (0.0-13.0) 12/14/18 04:41 Eos % (Auto) 6.2 % (0.9-2.9) H 12/14/18 04:41 Baso % (Auto) 0.8 % (0.2-1.0) 12/14/18 04:41 Neut # (Auto) 2.2 x10^3/uL (2.2-4.8) 12/14/18 04:41 Lymph # (Auto) 1.1 X10^3/uL (1.3-2.9) L 12/14/18 04:41 [place] # (Auto) 0.4 x10^3/uL (0.3-0.8) 12/14/18 04:41 Eos # (Auto) 0.2 x10^3/uL (0.0-0.2) 12/14/18 04:41 Baso # (Auto) 0.0 X10^3/uL (0.0-0.1) 12/14/18 04:41 Absolute Nucleated RBC 0.0 /100WBC 12/14/18 04:41 Plt Morphology Comment Normal (NORMAL) 12/12/18 04:43 RBC Morphology Normal (NORMAL) 12/12/18 04:43 ESR 3 MM/HOUR (0-15) 12/11/18 15:01 PT 16.6 SECONDS (11.8-14.3) 12/14/18 04:41 INR Target Range - 12/14/18 04:41 INR 1.39 (0.8-1.3) H 12/14/18 04:41 Sodium 137 mmol/L (136-145) 12/14/18 04:41 Corrected Sodium 139 mmol/L (136-145) 12/14/18 04:41 Potassium 4.1 mmol/L (3.5-5.1) 12/14/18 04:41 Chloride 106 mmol/L (98-107) 12/14/18 04:41 Carbon Dioxide 26.0 mmol/L (21-32) 12/14/18 04:41 BUN 9 mg/dL (7-18) 12/14/18 04:41 Creatinine 0.81 mg/dL (0.70-1.30) 12/14/18 04:41 Est GFR (MDRD) Af Amer > 60 (>60) 12/14/18 04:41 Est GFR (MDRD) Non-Af > 60 (>60) 12/14/18 04:41 Glucose 183 mg/dL (65-99) H 12/14/18 04:41 POC Glucose (mg/dL) 181 mg/dL (65-99) H 12/13/18 05:38 Hemoglobin A1c 5.5 % 12/11/18 15:01 Calcium 7.4 mg/dL (8.5-10.1) L 12/14/18 04:41 Corrected Calcium 9.0 mg/dL (8.5-10.1) 12/14/18 04:41 Magnesium 1.8 mg/dL (1.7-2.9) 12/14/18 04:41 Total Bilirubin 2.80 mg/dL (0.2-1.0) H 12/14/18 04:41 AST 34 Units/L (15-37) 12/14/18 04:41 ALT 20 Units/L (12-78) 12/14/18 04:41 Alkaline Phosphatase 123 Units/L (46-116) H 12/14/18 04:41 C-Reactive Protein 32.70 mg/L (0-3.0) H 12/12/18 04:43 Total Protein 4.8 g/dL (6.4-8.2) L 12/14/18 04:41 Albumin 2.0 g/dL (3.4-5.0) L 12/14/18 04:41 Globulin 2.8 g/dL (2.5-4.5) 12/14/18 04:41 Albumin/Globulin Ratio 0.7 Ratio (1.1-2.1) L 12/14/18 04:41 Amylase 89 Units/L (25-115) 12/14/18 04:41 Lipase 590 Units/L (73-393) H 12/14/18 04:41 Vancomycin Trough 6.3 ug/mL (15-20) L 12/13/18 14:30 Acetone, Semi-Quant Negative (NEGATIVE) 12/11/18 15:01 - Plan (1) Cellulitis of foot, right Status: Acute Plan: BLOOD CULTURES COLLECTED IN THE ER, ELEVATE RLE. XRAY RLE IN ER, WILL OBTAIN US RLE R/O DVT/PHLEBITIS. IV VANCOMYCIN, PAIN CONTROL. BLOOD SUGAR CONTROL (2) Hyperglycemia Status: Acute Plan: SSI COVERAGE, MONITOR BLOOD SUGAR. A1C 5.5 (3) Diabetes Status: Acute (4) Hepatomegaly Status: Acute (5) Thrombocytopenia Status: Acute
[2018-12-14 20:18] LABS: CREATININE 0.94 mg/dL (0.70-1.30)
[2018-12-14 20:19] LABS: VANCOMYCIN,TROUGH 22.1 ug/mL (15-20)
[2018-12-14] MEDS: SNACK - Diabetic Appropriate PO SCH (20:37)
[2018-12-15 04:53] LABS: BASOPHILS % (AUTO) 0.7 % (0.2-1.0); EOSINOPHILS # (AUTO) 0.3 x10^3/uL (0.0-0.2); EOSINOPHILS % (AUTO) 5.1 % (0.9-2.9); HEMATOCRIT 42.7 % (42.0-54.0); HEMOGLOBIN 15.2 g/dL (13.5-18.0); LYMPHOCYTES # (AUTO) 1.5 X10^3/uL (1.3-2.9); LYMPHOCYTES % (AUTO) 29.2 % (21.0-51.0); MEAN CORPUSCULAR HEMOGLOBIN 34.9 pg (27.0-34.0); MEAN CORPUSCULAR HGB CONC 35.6 g/dL (33.0-35.0); MEAN CORPUSCULAR VOLUME 97.8 fL (80.0-100.0); MEAN PLATELET VOLUME 8.5 fL (7.4-11.0); MONOCYTES # (AUTO) 0.4 x10^3/uL (0.3-0.8); MONOCYTES % (AUTO) 7.7 % (0.0-13.0); NEUTROPHILS % (AUTO) 57.3 % (42.0-75.0); PLATELET COUNT 64 X10^3/uL (150.0-450.0); RED BLOOD COUNT 4.37 X10^6/uL (4.7-6.0); RED CELL DISTRIBUTION WIDTH 14.6 % (11.6-16.5); WHITE BLOOD COUNT 5.2 X10^3/uL (3.6-10.0)
[2018-12-15 05:08] LABS: ALANINE AMINOTRANSFERASE 23 Units/L (12-78); ALBUMIN 2.3 g/dL (3.4-5.0); ALKALINE PHOSPHATASE 123 Units/L (46-116); ASPARTATE AMINO TRANSFERASE 37 Units/L (15-37); BLOOD UREA NITROGEN 9 mg/dL (7-18); CALCIUM 7.9 mg/dL (8.5-10.1); CHLORIDE 106 mmol/L (98-107); COR CA(FOR HYPOALB) 9.3 mg/dL (8.5-10.1); COR NA(FOR HYPERGLY) 141 mmol/L (136-145); CREATININE 0.88 mg/dL (0.70-1.30); SODIUM 139 mmol/L (136-145); TOTAL PROTEIN 5.4 g/dL (6.4-8.2); eGFR NON BLACK RACES > 60 (>60)
[2018-12-15] MEDS: ZOSYN VIAL 3.375 GRAMS 3.375 G in NS 100 ML IV + SPIKE MINIBAG* 100 ML IV SCH (05:48)
[2018-12-15 06:25] LABS: AMYLASE 97 Units/L (25-115); LIPASE 462 Units/L (73-393)
[2018-12-15] MEDS: BACTRIM DS TAB PO SCH (08:13)
[2018-12-15 09:00] VITALS: BP 133/72
[2018-12-15] MEDS ORDERED: VANCOMYCIN HCL 500 MG VIAL 250 MG, VANCOMYCIN HCL 1 GM VIAL 1 G in D5W 250 ML IV 250 ML IV SCH (09:00)
[2018-12-17 06:13] LABS: HEPATITIS B SURFACE ANTIGEN Positive (Negative)
== END 2018-12-15 11:15 | disposition home or self-care (01) | DRG 603 ==
LOC: ER 14:33 → MED/SURG 15:43
PROVIDERS: ADMIT Internal Medicine; ATTEND Internal Medicine
DX: D69.6 Thrombocytopenia, unspecified; L03.115 Cellulitis of right lower limb; K21.9 Gastro-esophageal reflux disease without esophagitis; R60.0 Localized edema; E11.65 Type 2 diabetes mellitus with hyperglycemia; K76.89 Other specified diseases of liver; F10.10 Alcohol abuse, uncomplicated; M79.604 Pain in right leg
CPT/HCPCS: 36415; 73630; 74177; 80048; 80053; 80074; 80202; 82009; 82150; 82565; 83036; 83690; 83735; 85025; 85610; 85652; 86140; 87040; 87070; 87075; 87205; 93971; 96365; 96374; 96375; 99284; A4222; J1815; J1940; J2543; J3370; J3475; J7030; J7050

== ENCOUNTER 2019-10-27 09:45 | Inpatient (IN) ==
[2019-10-27 09:57] VITALS: BMI 28.0
[2019-10-27] MEDS ORDERED: MOTRIN TAB 800 MG PO ONE ×2 (10:06)
--- NOTE | 2019-10-27 10:09 | DR.FEVERAD ---
HPI Time seen Time Seen by Provider: 10/27/19 10:03 Complaints/Symptoms Chief Complaint:: SIGNIFICANT OTHER STATES LAST NIGHT PATIENT'S TEMP WAS 103.5 AND SHE GAVE HIM TYLENOL 650MG PO AND THIS MORNING AROUND 5AM TEMP IS 99.3 AND THEN AM IS TEMP WAS 103.3. PATIENT STATES HE HAS BEEN HAVING FEVER, COUGHING, AND DIARRHEA. 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 Past Surgical History: No Family History History of Family Medical Conditions: Yes Family Medical History: Diabetes Mellitus, [place], Coronary Artery Disease and Hypertension Social History Does patient currently use any type of tobacco product: Yes Have you used tobacco products in the last 12 months: Yes Type of Tobacco Use: Cigarettes Does any household member use tobacco: No Alcohol Use: None Do you use any recreational Drugs:: No Lives With: Significant Other Lives Where: Home Travel Risk Coronavirus risk:travel/contact w/high risk person: No Has patient experienced Coronavirus symptoms: Yes Coronavirus symptoms experienced: Fever and Coughing Infectious screening Have you traveled outside the country in the last 6 months?: No Isolation: Droplet ROS Review of Systems Constitutional: Fever (see HPI began last night), Malaise, Weakness and Fatigue Eyes: No Symptoms Reported ENTM: No Symptoms Reported Respiratoy: Non-Productive Cough Cardiovascular: No Symptoms Reported Gastrointestinal/Abdominal: No Symptoms Reported Genitourinary: No Symptoms Reported Neurological: No Symptoms Reported Musculoskeletal: Other (generalized myalgias) Integumentary: No Symptoms Reported Hematologic/Lymphatic: No Symptoms Reported Endocrine: No Symptoms Reported Psychiatric: No Symptoms Reported All Other Systems: Reviewed and Negative PE Vital Signs Vitals: Temperature 102.2 F Pulse Rate 113 Respiratory Rate 16 Blood Pressure [Right Arm] 122/68 Blood Pressure 135/67 O2 Sat by Pulse Oximetry 98 General Limitations: No Limitations General Appearance: Alert and In No Apparent Distress; negative Lethargic and Obtunded Head Head Exam: Normal Inspection, Atraumatic and Normocephalic Eyes Eye exam: Normal Appearance and PERRL; negative Scleral Icterus and Conjunctival Injection ENT ENT Exam: Normal Exam, Mucous Membranes Dry and Other (pharynx slighlt red) External Ear Exam: Normal External Inspection Mouth Exam: Normal Inspection Teeth Exam: Normal Inspection Throat Exam: Tonsillar Erythema Neck Neck Exam: Normal Inspection, Full ROM and Trachea Midline; negative Tenderness and Lymphadenopathy Respiratory Respiratory Exam: Normal Lung Sounds Bilat; negative Accessory Muscle Use Respiratory Exam: Bilateral: Clear to Auscultation Abdominal Exam Abdominal Exam: Normal Inspection, Normal Bowel Sounds and Soft; negative Tenderness Neurologic Neurological Exam: Alert, Oriented X3 and Normal Gait Psychiatric Psychiatric Exam: Normal Affect and Normal Mood Skin Skin Exam: Warm, Dry and Normal Color COURSE Treatment Treatment: discussed with Dr Marcin Abraham he accepted ROR Labs Reviewed Result Diagrams: 10/27/19 10:10 10/27/19 10:10 Laboratory: WBC 11.7 X10^3/uL (3.6-10.0) H 10/27/19 10:10 RBC 3.72 X10^6/uL (4.7-6.0) L 10/27/19 10:10 Hgb 12.9 g/dL (13.5-18.0) L 10/27/19 10:10 Hct 38.2 % (42.0-54.0) L 10/27/19 10:10 MCV 102.8 fL (80.0-100.0) H 10/27/19 10:10 MCH 34.7 pg (27.0-34.0) H 10/27/19 10:10 MCHC 33.8 g/dL (33.0-35.0) 10/27/19 10:10 RDW 17.8 % (11.6-16.5) H 10/27/19 10:10 Plt Count 32 X10^3/uL (150.0-450.0) L 10/27/19 10:10 Plt Count Comment Decreased (ADEQUATE) 10/27/19 10:10 MPV 10.1 fL (7.4-11.0) 10/27/19 10:10 Neut % (Auto) 93.7 % (42.0-75.0) H 10/27/19 10:10 Lymph % (Auto) 2.3 % (21.0-51.0) L 10/27/19 10:10 [place] % (Auto) 3.6 % (0.0-13.0) 10/27/19 10:10 Eos % (Auto) 0.2 % (0.9-2.9) L 10/27/19 10:10 Baso % (Auto) 0.2 % (0.2-1.0) 10/27/19 10:10 Neut # (Auto) 11.0 x10^3/uL (2.2-4.8) H 10/27/19 10:10 Lymph # (Auto) 0.3 X10^3/uL (1.3-2.9) L 10/27/19 10:10 [place] # (Auto) 0.4 x10^3/uL (0.3-0.8) 10/27/19 10:10 Eos # (Auto) 0.0 x10^3/uL (0.0-0.2) 10/27/19 10:10 Baso # (Auto) 0.0 X10^3/uL (0.0-0.1) 10/27/19 10:10 Absolute Nucleated RBC 0.0 /100WBC 10/27/19 10:10 Total Counted 100 10/27/19 10:10 Neutrophils % (Manual) 89 % (39-76) H 10/27/19 10:10 Band Neutrophils % 6 % (0-10) 10/27/19 10:10 Lymphocytes % (Manual) 4 % (13-43) L 10/27/19 10:10 Monocytes % (Manual) 1 % (4-9) L 10/27/19 10:10 Plt Morphology Comment Normal (NORMAL) 10/27/19 10:10 RBC Morphology Normal (NORMAL) 10/27/19 10:10 Sodium 137 mmol/L (136-145) 10/27/19 10:10 Corrected Sodium 138 mmol/L (136-145) 10/27/19 10:10 Potassium 4.9 mmol/L (3.5-5.1) 10/27/19 10:10 Chloride 106 mmol/L (98-107) 10/27/19 10:10 Carbon Dioxide 23.8 mmol/L (21-32) 10/27/19 10:10 BUN 24 mg/dL (7-18) H 10/27/19 10:10 Creatinine 1.92 mg/dL (0.70-1.30) H 10/27/19 10:10 Est GFR (MDRD) Af Amer 48 (>60) L 10/27/19 10:10 Est GFR (MDRD) Non-Af 40 (>60) L 10/27/19 10:10 Glucose 153 mg/dL (65-99) H 10/27/19 10:10 Lactic Acid 4.2 mmol/L (0.4-2.0) H 10/27/19 10:10 Calcium 7.5 mg/dL (8.5-10.1) L 10/27/19 10:10 Corrected Calcium 9.0 mg/dL (8.5-10.1) 10/27/19 10:10 Total Bilirubin 9.10 mg/dL (0.2-1.0) H 10/27/19 10:10 AST 61 Units/L (15-37) H 10/27/19 10:10 ALT 33 Units/L (12-78) 10/27/19 10:10 Alkaline Phosphatase 120 Units/L (46-116) H 10/27/19 10:10 B-Natriuretic Peptide 71.6 pg/mL (0-79) 10/27/19 10:10 Total Protein 4.7 g/dL (6.4-8.2) L 10/27/19 10:10 Albumin 2.1 g/dL (3.4-5.0) L 10/27/19 10:10 Globulin 2.6 g/dL (2.5-4.5) 10/27/19 10:10 Albumin/Globulin Ratio 0.8 Ratio (1.1-2.1) L 10/27/19 10:10 Specimen Type Clean catch urine 10/27/19 12:20 Urine Color Shepherd (YELLOW) 10/27/19 12:20 Urine Appearance Slightly hazy (CLEAR) 10/27/19 12:20 Urine pH 5.0 (5.0 - 8.0) 10/27/19 12:20 Ur Specific [place] 1.025 (1.000-1.030) 10/27/19 12:20 Urine Protein 2+ (NEGATIVE) 10/27/19 12:20 Urine Glucose (UA) 1+ (NEGATIVE) 10/27/19 12:20 Urine Ketones 2+ (NEGATIVE) 10/27/19 12:20 Urine Occult Blood 4+ (NEGATIVE) 10/27/19 12:20 Urine Nitrite Positive (NEGATIVE) 10/27/19 12:20 Urine Bilirubin 2+ (NEGATIVE) 10/27/19 12:20 Urine Urobilinogen 3+ (NORMAL) 10/27/19 12:20 Ur Leukocyte Esterase 1+ (NEGATIVE) 10/27/19 12:20 Urine RBC 3-5 /HPF (0-3) A 10/27/19 12:20 Urine WBC 3-5 /HPF (0-5) 10/27/19 12:20 Ur Squamous Epith Cells Rare /HPF (NEGATIVE) 10/27/19 12:20 Urine Bacteria Negative /HPF (NEGATIVE) 10/27/19 12:20 Fine Granular Casts Rare /LPF (NEGATIVE) 10/27/19 12:20 Ur Culture Indicated? No/not indicated 10/27/19 12:20 SARS-CoV-2 (PCR) Cancelled 10/27/19 10:10 S. pyogenes (TEM-PCR) Not detected (NOT DETECT) 10/27/19 10:10 Opioid Opioid Risk Tool Personal Hx of Substance Abuse: Illegal Drugs Age ([place] box if 16-45): No History of Preadolescent Sexual Abuse: No Total: 0 Total Score Risk Category: Low Risk Copyright: Ciaran BRENNAN predicting aberrant behaviors
--- NOTE | 2019-10-27 10:28 | RAD ---
HISTORYcough fever, sobSTUDYPortable AP chestCOMPARISONNoneFINDINGSThe lungs are clear. The heart is mildly enlarged and there is moderate vascular congestion. There is no obvious effusion. No bony abnormality is demonstrated.IMPRESSIONMild cardiomegaly and moderate vascular congestionElectronically signed by: GLORY CUETO (Oct 27, 2019 10:28:14)
[2019-10-27 10:45] LABS: BASOPHILS % (AUTO) 0.2 % (0.2-1.0); EOSINOPHILS % (AUTO) 0.2 % (0.9-2.9); HEMATOCRIT 38.2 % (42.0-54.0); HEMOGLOBIN 12.9 g/dL (13.5-18.0); LYMPHOCYTES # (AUTO) 0.3 X10^3/uL (1.3-2.9); LYMPHOCYTES % (AUTO) 2.3 % (21.0-51.0); MEAN CORPUSCULAR HEMOGLOBIN 34.7 pg (27.0-34.0); MEAN CORPUSCULAR HGB CONC 33.8 g/dL (33.0-35.0); MEAN CORPUSCULAR VOLUME 102.8 fL (80.0-100.0); MEAN PLATELET VOLUME 10.1 fL (7.4-11.0); MONOCYTES # (AUTO) 0.4 x10^3/uL (0.3-0.8); MONOCYTES % (AUTO) 3.6 % (0.0-13.0); NEUTROPHILS % (AUTO) 93.7 % (42.0-75.0); PLATELET COUNT 32 X10^3/uL (150.0-450.0); RED BLOOD COUNT 3.72 X10^6/uL (4.7-6.0); RED CELL DISTRIBUTION WIDTH 17.8 % (11.6-16.5); WHITE BLOOD COUNT 11.7 X10^3/uL (3.6-10.0)
[2019-10-27 10:57] LABS: ALBUMIN 2.1 g/dL (3.4-5.0); CALCIUM 7.5 mg/dL (8.5-10.1); CARBON DIOXIDE 23.8 mmol/L (21-32); CREATININE 1.92 mg/dL (0.70-1.30); TOTAL PROTEIN 4.7 g/dL (6.4-8.2)
[2019-10-27 11:12] LABS: BAND NEUTROPHILS % 6 % (0-10); PLATELET MORPHOLOGY COMMENT NORMAL (NORMAL)
[2019-10-27 12:46] LABS: BILIRUBIN,URINE 2+ (NEGATIVE); BLOOD/HEMOGLOBIN,URINE 4+ (NEGATIVE); GLUCOSE, URINE 1+ (NEGATIVE); KETONES,URINE 2+ (NEGATIVE); LEUKOCYTE ESTERASE ,URINE 1+ (NEGATIVE); NITRITES,URINE POSITIVE (NEGATIVE); PROTEIN,URINE 2+ (NEGATIVE); UROBILINOGEN,URINE 3+ (NORMAL)
[2019-10-27 12:54] LABS: COLOR,URINE ORANGE (YELLOW)
[2019-10-27 12:55] LABS: APPEARANCE,URINE SLIGHTLY HAZY (CLEAR)
[2019-10-27 12:56] LABS: BACTERIA,URINE NEGATIVE /HPF (NEGATIVE); SQUAMOUS EPITHELIAL CELL,UR RARE /HPF (NEGATIVE)
[2019-10-27 12:57] LABS: FINE GRANULAR CASTS,URINE RARE /LPF (NEGATIVE)
[2019-10-27] MEDS ORDERED: NS 1000 ML 1,000 ML IV ONE (13:06)
[2019-10-27] MEDS ORDERED: NS 50 ML IV + SPIKE MINIBAG* 0 ML IV ONE (13:35)
[2019-10-27] MEDS ORDERED: ROCEPHIN VIAL 1 GRAM ONE (13:35)
[2019-10-27] MEDS ORDERED: NS 1000 ML 1,000 ML ONE (13:35)
[2019-10-27] MEDS ORDERED: NS 100 ML IV + SPIKE MINIBAG* 100 ML IV ONE (13:37)
[2019-10-27] MEDS: ROCEPHIN VIAL 1 GRAM IV ONE (13:49)
[2019-10-27 14:42] LABS: LACTIC ACID 2.6 mmol/L (0.4-2.0)
[2019-10-27 14:49] LABS: AMYLASE 57 Units/L (25-115); CKMB % 0.6 % (<4); CREATINE KINASE 159 Units/L (39-308); CREATINE KINASE MB < 1.0 ng/mL (0-4.0); LIPASE 96 Units/L (73-393); MAGNESIUM 1.2 mg/dL (1.7-2.9); PHOSPHORUS 2.4 mg/dL (2.6-4.7); TROPONIN I < 0.02 ng/mL (0-1.5)
[2019-10-27] MEDS ORDERED: LOVENOX INJ 30 MG SYR SC SCH (15:00)
[2019-10-27] MEDS: VSL#3 PO SCH (18:26)
[2019-10-27] MEDS: XIFAXAN PO SCH (20:09)
[2019-10-27] MEDS: CHRONULAC PO SCH (20:50)
[2019-10-27 21:02] LABS: CKMB % 0.5 % (<4); CREATINE KINASE 216 Units/L (39-308); TROPONIN I < 0.02 ng/mL (0-1.5)
[2019-10-27] MEDS: PROTONIX INJ 40 MG VIAL IVP SCH (21:10)
[2019-10-27 21:36] LABS: LACTIC ACID 3.5 mmol/L (0.4-2.0)
[2019-10-28 02:25] LABS: LACTIC ACID 2.4 mmol/L (0.4-2.0)
[2019-10-28 02:29] LABS: CKMB % 0.6 % (<4); CREATINE KINASE 167 Units/L (39-308); TROPONIN I < 0.02 ng/mL (0-1.5)
[2019-10-28 06:11] LABS: BASOPHILS % (AUTO) 0.2 % (0.2-1.0); EOSINOPHILS # (AUTO) 0.1 x10^3/uL (0.0-0.2); HEMATOCRIT 36.5 % (42.0-54.0); HEMOGLOBIN 12.5 g/dL (13.5-18.0); LYMPHOCYTES # (AUTO) 0.5 X10^3/uL (1.3-2.9); LYMPHOCYTES % (AUTO) 6.3 % (21.0-51.0); MEAN CORPUSCULAR HEMOGLOBIN 35.1 pg (27.0-34.0); MEAN CORPUSCULAR HGB CONC 34.2 g/dL (33.0-35.0); MEAN CORPUSCULAR VOLUME 102.6 fL (80.0-100.0); MEAN PLATELET VOLUME 9.9 fL (7.4-11.0); MONOCYTES # (AUTO) 0.7 x10^3/uL (0.3-0.8); MONOCYTES % (AUTO) 8.8 % (0.0-13.0); NEUTROPHILS # (AUTO) 6.4 x10^3/uL (2.2-4.8); NEUTROPHILS % (AUTO) 83.7 % (42.0-75.0); PLATELET COUNT 27 X10^3/uL (150.0-450.0); RED BLOOD COUNT 3.56 X10^6/uL (4.7-6.0); RED CELL DISTRIBUTION WIDTH 17.6 % (11.6-16.5); WHITE BLOOD COUNT 7.6 X10^3/uL (3.6-10.0)
[2019-10-28 06:20] LABS: ALBUMIN 1.8 g/dL (3.4-5.0); CALCIUM 7.5 mg/dL (8.5-10.1); CARBON DIOXIDE 23.9 mmol/L (21-32); COR CA(FOR HYPOALB) 9.3 mg/dL (8.5-10.1); CREATININE 2.55 mg/dL (0.70-1.30); TOTAL PROTEIN 4.3 g/dL (6.4-8.2)
[2019-10-28 06:46] LABS: LACTIC ACID 1.9 mmol/L (0.4-2.0)
[2019-10-28 06:47] LABS: PLATELET MORPHOLOGY COMMENT NORMAL (NORMAL)
[2019-10-28] MEDS ORDERED: ROCEPHIN VIAL 2 GRAMS ONE (08:43)
[2019-10-28] MEDS ORDERED: ROCEPHIN VIAL 1 GRAM ONE (08:48)
[2019-10-28] MEDS ORDERED: NS 100 ML IV + SPIKE MINIBAG* 100 ML IV ONE (08:48)
[2019-10-28] MEDS: CHRONULAC PO SCH ×2 (09:18→20:04)
[2019-10-28] MEDS: ROCEPHIN IV SCH (09:19)
[2019-10-28] MEDS: NS IV SCH (09:19)
[2019-10-28] MEDS: ROCEPHIN VIAL 1 GRAM IV ONE (09:19)
[2019-10-28] MEDS: SPIKE MINIBAG IV SCH (09:19)
[2019-10-28] MEDS: PROTONIX INJ 40 MG VIAL IVP SCH ×2 (09:19→20:05)
[2019-10-28] MEDS: VSL#3 PO SCH (09:20)
[2019-10-28] MEDS: XIFAXAN PO SCH ×2 (09:20→20:05)
--- NOTE | 2019-10-28 12:28 | DR.H&P ---
H&P - History & Physical for Day of: H&P Date: 10/27/19 - Chief Complaint Chief Complaint: FEVER, ABDOMINAL PAIN, LEFT LEG PAIN WITH SWELLING AND DIARRHEA - History of Present Illness History of Present Illness: PT IS 49 WF ER ADMISSION AFTER PRESENTING WITH SPOUSE, CO FEVER UP TO 103 AT HOME WITH SUDDEN ONSET. PT STATES HE HAS A NEW [place] LLE EDEMA AND INCREASED ABDOMINAL SWELLING AND DECREASED URINE OUTPT. PT HAD PMH OF CIRRHOSIS WITH CHRONIC THROMBOCYTOPENIA. PT HAS BEEN UNDER THE CARE OF DR BARBER, WITH REPORTS OF ETOH CESSATION 6 MOS AGO AND TAKING MEDICATION DIRECTED. PT DENIES ANY CHEST PAIN OR KNOWN COVID EXPOSURE. PT ADMITTED FOR TREATMENT OF ACUTE ILLNESS R/O COVID 19 - Past Medical History Past Medical History: Cirrhosis, GERD - Past Surgical History Surgical History: No History - Family History Family Medical History: Diabetes Mellitus, [place], Coronary Artery Disease, Hypertension - Social History Does patient currently use any type of tobacco product: Yes Have you used tobacco products in the last 12 months: Yes Type of Tobacco Use: Cigarettes Does any household member use tobacco: No Alcohol Use: None Drug Use: None - Medications Home Medications: No Known Drug Allergies Allergy (Verified 08/24/17 12:43) - Review of Systems Constitutional: Fever, Chills, Sweats Eyes: No Symptoms Reported ENT: No Symptoms Reported Respiratory: Shortness of Breath Cardiovascular: Edema Gastrointestinal: Nausea, Abdominal Pain, Diarrhea Genitourinary: Retention Musculoskeletal: Leg Pain Skin: No Symptoms Reported Neurological: No Symptoms Reported - Physical Exam Vital Signs: Temperature 99.2 F Pulse Rate [Left Brachial] 110 Pulse Rate 98 Respiratory Rate 18 Blood Pressure [Left Arm] 149/84 Blood Pressure [Right Arm] 122/68 Blood Pressure 118/55 O2 Sat by Pulse Oximetry 92 Oriented: Normal Eyes: Normal Ear: Normal Nose: Normal Throat: Normal Respiratory: RLL Diminished, LLL Diminished Cardiovascular: Normal, Edema (LLE +3 EDEMA) : Normal Auscultation: Bowel Sounds: Normal Palpation: Spleen Enlarged, Liver Enlarged, Other (DIFFUSE DISTENTION) Tenderness: Diffuse Skin: Normal Musculoskeletal: Left, Leg, Back:Thoracic, Back:Lumbar, Swelling, Tender Psychiatric: Normal Mood Description: Anxious Affect: Anxious Speech Pattern: Clear, Appropriate - Assessment/Plan (1) Sepsis Status: Acute Plan: ADMIT, BLOOD AND URINE CULTURE ON ADMISSION. IV HYDRATION WITH STRICT I & OS. BP CONTROL, OCCULT STOOL, BLEEDING PRECAUTIONS. COVID 19 ON ADMISSION, DROPLET PRECAUTIONS, VERIFY AND RESUME HOME MEDICATIONS, IV ROCEPHIN, RESP CONSULT PRN (2) UTI (urinary tract infection) Status: Acute (3) Hepatic cirrhosis Qualifiers: Ascites presence: without ascites Status: Acute (4) Thrombocytopenia Status: Acute (5) Localized swelling of left lower leg Status: Acute - Allergies Allergies/Adverse Reactions: Allergies Allergy/AdvReac Type Severity Reaction Status Date / Time No Known Drug Allergies Allergy Verified 08/24/17 12:43
[2019-10-28 13:07] LABS: SERUM ACETONE NEGATIVE (NEGATIVE)
[2019-10-28 13:08] LABS: FREE T4 (FREE THYROXINE) 0.95 ng/dL (0.76-1.46); TSH (3RD GENERATION) 2.772 uIU/mL (0.358-3.74)
[2019-10-28 13:12] LABS: TOTAL PSA 0.45 ng/mL (0.13-4.0)
--- NOTE | 2019-10-28 13:49 | RAD ---
HISTORYFEVER, COUGH, ABD PAINSTUDYPortable AP chestCOMPARISONYesterday October 26FINDINGSThere is minimal vascular congestion improved. There is new blunting of the left costophrenic angle. The heart is mildly enlarged. There is subsegmental atelectasis at the left lung base.IMPRESSIONResolving vascular congestion. Probable minimal left pleural effusion. Mild subsegmental atelectasis at the left lung base.Electronically signed by: GLORY CUETO (Oct 28, 2019 13:47:31)
[2019-10-28] MEDS ORDERED: LASIX IVP ONE (14:57)
--- NOTE | 2019-10-28 15:12 | CT ---
HISTORY:Abdominal pain, history of cirrhosisStudy: CT abdomen and pelvis without contrastComparison:CT 12/13/2018Technique: Multiple axial images of the abdomen and pelvis were obtained without IV contrast. Oral contrast was not administered. Dose reduction techniques including Automated Exposure Control (AEC) and adjustment of mA and kV were utilized.FINDINGS:Please note evaluation is limited without IV contrast.There is a small left pleural effusion and left basilar atelectasis. The liver has a cirrhotic configuration and nodular contour. The spleen is enlarged measuring 16 centimeters with masses splenic varices compatible with sequela of portal venous hypertension. There is also moderate ascites present. The unenhanced pancreas, kidneys, and adrenal glands are unremarkable. Gallbladder is removed.No free intraperitoneal air. Ascites limits evaluation of the bowel. Questionable stranding and thickening of the stomach and duodenum. No evidence of mechanical obstruction. Visualized portions of the appendix are normal.The soft tissues and osseous structures are intact. Limited evaluation of vascular structures due to lack of IV contrast. Shotty mesenteric and retroperitoneal lymph nodes are present and do not appear significantly changed. Urinary bladder is unremarkable.IMPRESSION ABDOMEN/PELVIS:1. Cirrhosis of the liver with splenomegaly, massive splenic varices, and moderate volume ascites throughout the abdomen and pelvis compatible with sequela of portal venous hypertension.2. Small left pleural effusion.3. Questionable thickening and stranding around the stomach and duodenum, correlate for gastritis/duodenitis. Exam limited by lack of oral and IV contrast. Consider GI follow-up if indicated.Electronically signed by: LEXI PEDERSON (Oct 28, 2019 15:11:27)
--- NOTE | 2019-10-28 15:49 | VAS ---
HISTORYLLE EDEMASTUDYLOWER EXT VENOUS, [id number] carrillo scale and color flow Doppler images of the deep v enous system were obtained of the right and left lower extremity. Spectral analysis was also perform edFINDINGSThere is normal color Doppler flow a, waveform and compression of the common femoral vein, superficial femoral vein, popliteal veins bilaterally. There is also normal color Doppler flow in the great saphenous- common femoral junctionIMPRESSIONNo sonographic evidence of bilateral lower extremi ties deep venous thrombosisElectronically signed by: Rosita Skinner (Oct 28, 2019 15:48:10)
[2019-10-28] MEDS ORDERED: FLOMAX ONE (19:05)
[2019-10-28] MEDS: FLOMAX PO SCH (20:04)
[2019-10-28] MEDS: ROXICODONE TAB 5 MG PO PRN (23:52)
[2019-10-29 05:18] LABS: BASOPHILS % (AUTO) 0.3 % (0.2-1.0); EOSINOPHILS # (AUTO) 0.2 x10^3/uL (0.0-0.2); HEMATOCRIT 33.2 % (42.0-54.0); HEMOGLOBIN 11.6 g/dL (13.5-18.0); LYMPHOCYTES % (AUTO) 19.1 % (21.0-51.0); MEAN CORPUSCULAR HEMOGLOBIN 35.6 pg (27.0-34.0); MEAN CORPUSCULAR HGB CONC 34.9 g/dL (33.0-35.0); MEAN CORPUSCULAR VOLUME 102.1 fL (80.0-100.0); MEAN PLATELET VOLUME 10.2 fL (7.4-11.0); MONOCYTES # (AUTO) 0.6 x10^3/uL (0.3-0.8); MONOCYTES % (AUTO) 10.4 % (0.0-13.0); NEUTROPHILS # (AUTO) 3.6 x10^3/uL (2.2-4.8); NEUTROPHILS % (AUTO) 67.2 % (42.0-75.0); PLATELET COUNT 31 X10^3/uL (150.0-450.0); RED BLOOD COUNT 3.25 X10^6/uL (4.7-6.0); RED CELL DISTRIBUTION WIDTH 17.1 % (11.6-16.5); WHITE BLOOD COUNT 5.4 X10^3/uL (3.6-10.0)
[2019-10-29 05:23] LABS: ALBUMIN 1.7 g/dL (3.4-5.0); CARBON DIOXIDE 25.6 mmol/L (21-32); CHOL/HDL RATIO 6.3 (0.0-5.0); COR CA(FOR HYPOALB) 8.8 mg/dL (8.5-10.1); CREATININE 1.7 mg/dL (0.70-1.30); TOTAL PROTEIN 3.8 g/dL (6.4-8.2)
[2019-10-29 05:35] LABS: PLATELET MORPHOLOGY COMMENT NORMAL (NORMAL)
[2019-10-29] MEDS: CHRONULAC PO SCH ×2 (08:31→20:24)
[2019-10-29] MEDS ORDERED: ROCEPHIN VIAL 2 GRAMS ONE (09:13)
[2019-10-29] MEDS ORDERED: NS 250 ML IV 250 ML IV ONE (09:19)
[2019-10-29] MEDS ORDERED: NS 100 ML IV + SPIKE MINIBAG* 100 ML IV ONE (09:19)
[2019-10-29] MEDS ORDERED: ROCEPHIN VIAL 1 GRAM ONE (09:22)
[2019-10-29] MEDS: PROTONIX INJ 40 MG VIAL IVP SCH ×2 (09:44→20:25)
[2019-10-29] MEDS: ROCEPHIN IV SCH (09:44)
[2019-10-29] MEDS: NS IV SCH (09:44)
[2019-10-29] MEDS: SPIKE MINIBAG IV SCH (09:44)
[2019-10-29] MEDS: XIFAXAN PO SCH ×2 (09:45→20:24)
[2019-10-29] MEDS: VSL#3 PO SCH (09:45)
[2019-10-29] MEDS: FLOMAX PO SCH (20:24)
[2019-10-29] MEDS: ROXICODONE TAB 5 MG PO PRN (20:25)
[2019-10-30 05:50] LABS: BASOPHILS % (AUTO) 0.7 % (0.2-1.0); EOSINOPHILS # (AUTO) 0.2 x10^3/uL (0.0-0.2); EOSINOPHILS % (AUTO) 4.5 % (0.9-2.9); HEMOGLOBIN 12.6 g/dL (13.5-18.0); LYMPHOCYTES # (AUTO) 0.9 X10^3/uL (1.3-2.9); LYMPHOCYTES % (AUTO) 23.2 % (21.0-51.0); MEAN CORPUSCULAR HEMOGLOBIN 35.4 pg (27.0-34.0); MEAN CORPUSCULAR HGB CONC 34.9 g/dL (33.0-35.0); MEAN CORPUSCULAR VOLUME 101.3 fL (80.0-100.0); MEAN PLATELET VOLUME 9.2 fL (7.4-11.0); MONOCYTES # (AUTO) 0.4 x10^3/uL (0.3-0.8); MONOCYTES % (AUTO) 9.3 % (0.0-13.0); NEUTROPHILS # (AUTO) 2.4 x10^3/uL (2.2-4.8); NEUTROPHILS % (AUTO) 62.3 % (42.0-75.0); RED BLOOD COUNT 3.56 X10^6/uL (4.7-6.0); RED CELL DISTRIBUTION WIDTH 17.3 % (11.6-16.5)
[2019-10-30 05:54] LABS: ALANINE AMINOTRANSFERASE 33 Units/L (12-78); ALBUMIN 1.8 g/dL (3.4-5.0); ALKALINE PHOSPHATASE 127 Units/L (46-116); ASPARTATE AMINO TRANSFERASE 50 Units/L (15-37); BLOOD UREA NITROGEN 23 mg/dL (7-18); CALCIUM 7.5 mg/dL (8.5-10.1); CARBON DIOXIDE 27.8 mmol/L (21-32); CHLORIDE 106 mmol/L (98-107); COR CA(FOR HYPOALB) 9.3 mg/dL (8.5-10.1); COR NA(FOR HYPERGLY) 137 mmol/L (136-145); CREATININE 1.34 mg/dL (0.70-1.30); SODIUM 135 mmol/L (136-145); TOTAL PROTEIN 4.3 g/dL (6.4-8.2); eGFR NON BLACK RACES > 60 (>60)
[2019-10-30 06:02] LABS: LACTIC ACID 1.1 mmol/L (0.4-2.0)
--- NOTE | 2019-10-30 06:16 | RAD ---
HISTORYAbdominal distensionSTUDYKUBCOMPARISONNoneFINDINGSThe abdominal gas pattern is nonspecific and nonobstructive. No abnormal masses or abnormal calcifications are identified. Regional skeleton is intact.IMPRESSIONU nremarpratima KUBElectronically signed by: VAIBHAV DE DIOS (Oct 30, 2019 06:14:34)
[2019-10-30 06:32] LABS: WHITE BLOOD COUNT 4.1 X10^3/uL (3.6-10.0)
[2019-10-30 06:42] LABS: PLATELET COUNT 38 X10^3/uL (150.0-450.0); PLATELET MORPHOLOGY COMMENT NORMAL (NORMAL)
[2019-10-30] MEDS: CHRONULAC PO SCH (08:41)
[2019-10-30] MEDS: VSL#3 PO SCH (08:42)
[2019-10-30] MEDS: XIFAXAN PO SCH (08:42)
[2019-10-30] MEDS: PROTONIX INJ 40 MG VIAL IVP SCH (08:42)
[2019-10-30] MEDS ORDERED: ROCEPHIN 1 GRAM IV PREMIX 1 G/50 ML IV.SOLN. IV SCH (09:00)
[2019-10-30] MEDS ORDERED: LASIX IVP SCH (09:00)
[2019-10-30] MEDS ORDERED: LAMIVUDINE 150 MG PO SCH (09:00)
[2019-10-30 12:35] VITALS: BP 149/84
--- NOTE | 2019-11-03 08:54 | DR.FEVERAD ---
HPI Time seen Time Seen by Provider: 10/27/19 10:03 Complaints/Symptoms Chief Complaint:: SIGNIFICANT OTHER STATES LAST NIGHT PATIENT'S TEMP WAS 103.5 AND SHE GAVE HIM TYLENOL 650MG PO AND THIS MORNING AROUND 5AM TEMP IS 99.3 AND THEN AM IS TEMP WAS 103.3. PATIENT STATES HE HAS BEEN HAVING FEVER, COUGHING, AND DIARRHEA. 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 Past Surgical History: No Family History History of Family Medical Conditions: Yes Family Medical History: Diabetes Mellitus, [place], Coronary Artery Disease and Hypertension Social History Does patient currently use any type of tobacco product: Yes Have you used tobacco products in the last 12 months: Yes Type of Tobacco Use: Cigarettes Does any household member use tobacco: No Alcohol Use: None Do you use any recreational Drugs:: No Lives With: Significant Other Lives Where: Home Travel Risk Coronavirus risk:travel/contact w/high risk person: No Has patient experienced Coronavirus symptoms: Yes Coronavirus symptoms experienced: Fever and Coughing Infectious screening Have you traveled outside the country in the last 6 months?: No Isolation: Droplet ROS Review of Systems Constitutional: Fever and Weakness Eyes: negative No Symptoms Reported, See HPI, Eye Pain, Blurred Vision, Tearing, Discharge, Photophobia, Diplopia and Other ENTM: negative No Symptoms Reported, See HPI, Ear Pain, Ear Discharge, Pulling on Ears, Hearing Loss, Nose Pain, Nose Discharge, Epistaxis, Nose Congestion, Mouth Pain, Mouth Swelling, Loose Teeth, Drooling, Throat Pain, Throat Swelling, Ear Foreign Body and Tooth/Dental Pain Respiratoy: Hacking Cough Cardiovascular: negative No Symptoms Reported, See HPI, Chest Pain, Edema, Palpitations, Syncope, Cyanosis, Skin Mottling and Other Gastrointestinal/Abdominal: Vomiting Genitourinary: negative No Symptoms Reported, See HPI, Discharge, Dysuria, Frequency, Hematuria, Pain, Bleeding and Other Neurological: negative No Symptoms Reported, See HPI, Anxiety, Depressed, Emotional Problems, Headache, Numbness, Paresthesia, Pre-existing Deficit, Seizure, Tingling, Tremors, Weakness, Dizziness, Problems Walking, Speech Problem and Other Musculoskeletal: negative No Symptoms Reported, See HPI, Back Pain, Gout, Joint Pain, Joint Swelling, Muscle Pain, Muscle Stiffness, Neck Pain, Right, Left, Neck, Chest wall, Rib(s), Back, Shoulder, Arm, Elbow, Forearm, Wrist, Hand, Pelvis, Hip, Leg, Knee, Ankle, Foot and Other Integumentary: negative No Symptoms Reported, See HPI, Change in Color, Change in Hair/Nails, Dryness, Lesions, Lumps, Rash, Itching, Wound, Bruises, Juandice and Other Hematologic/Lymphatic: negative No Symptoms Reported, See HPI, Anemia, Blood Clots, Easy Bleeding, Easy Bruising, Swollen Glands, Lymphadenopathy and Other Endocrine: negative No Symptoms Reported, See HPI, Excessive Sweating, Flushing, Intolerance to Cold, Intolerance to Heat, Increased Hunger, Increased Thirst, Increased Urine, Unexplained Weight Gain, Unexplained Weight Loss, Failure to Thrive, Decreased Appetite and Other Psychiatric: negative No Symptoms Reported, See HPI, Anxiety, Depression, Hallucinations, Excessive crying, Suicidal and Other All Other Systems: Reviewed and Negative PE Vital Signs Vitals: Temperature 102.2 F Pulse Rate 113 Respiratory Rate 18 Blood Pressure [Right Arm] 122/68 Blood Pressure 135/67 O2 Sat by Pulse Oximetry 98 General Limitations: No Limitations Head Head Exam: Normal Inspection, Atraumatic and Normocephalic Eyes Eye exam: Normal Appearance, PERRL and EOMI ENT ENT Exam: Normal Exam, Normal Oropharynx, Normal External Ear Exam and Mucous Membranes Moist Neck Neck Exam: Normal Inspection, Full ROM and Trachea Midline; negative Tenderness, Meningismus and Lymphadenopathy Respiratory Respiratory Exam: Normal Lung Sounds Bilat; negative Accessory Muscle Use, Chest Wall Tenderness, Prolonged Expiratory Phase and Respiratory Distress Respiratory Exam: Bilateral: Clear to Auscultation Cardiovascular Cardiovascular Exam: Regular Rate, Normal Rhythm, Bradycardia and Normal Heart Sounds; negative Tachycardia and Irregular Rhythm Abdominal Exam Abdominal Exam: Normal Inspection and Normal Bowel Sounds; negative Distention, Tenderness and Guarding Extremities Extremities Exam: Normal Inspection, Full ROM and Normal Capillary Refill; n egative Tenderness, Edema and Joint Swelling Back Back Exam: Normal Inspection and Full ROM; negative Tenderness, (R) CVA Tenderness, (L) CVA Tenderness and Vertebral Tenderness Neurologic Neurological Exam: Alert, Oriented X3 and Normal Gait; negative Motor Sensory Deficit Psychiatric Psychiatric Exam: Normal Affect and Normal Mood Skin Skin Exam: Warm, Dry and Intact ROR Labs Reviewed Result Diagrams: 10/30/19 05:22 10/30/19 05:22 Laboratory: 10/27/19 10:20 Blood Blood Culture - Final 10/27/19 10:10 Blood Blood Culture - Final Pseudomonas Species WBC 11.7 X10^3/uL (3.6-10.0) H 10/27/19 10:10 RBC 3.72 X10^6/uL (4.7-6.0) L 10/27/19 10:10 Hgb 12.9 g/dL (13.5-18.0) L 10/27/19 10:10 Hct 38.2 % (42.0-54.0) L 10/27/19 10:10 MCV 102.8 fL (80.0-100.0) H 10/27/19 10:10 MCH 34.7 pg (27.0-34.0) H 10/27/19 10:10 MCHC 33.8 g/dL (33.0-35.0) 10/27/19 10:10 RDW 17.8 % (11.6-16.5) H 10/27/19 10:10 Plt Count 32 X10^3/uL (150.0-450.0) L 10/27/19 10:10 Plt Count Comment Decreased (ADEQUATE) 10/27/19 10:10 MPV 10.1 fL (7.4-11.0) 10/27/19 10:10 Neut % (Auto) 93.7 % (42.0-75.0) H 10/27/19 10:10 Lymph % (Auto) 2.3 % (21.0-51.0) L 10/27/19 10:10 [place] % (Auto) 3.6 % (0.0-13.0) 10/27/19 10:10 Eos % (Auto) 0.2 % (0.9-2.9) L 10/27/19 10:10 Baso % (Auto) 0.2 % (0.2-1.0) 10/27/19 10:10 Neut # (Auto) 11.0 x10^3/uL (2.2-4.8) H 10/27/19 10:10 Lymph # (Auto) 0.3 X10^3/uL (1.3-2.9) L 10/27/19 10:10 [place] # (Auto) 0.4 x10^3/uL (0.3-0.8) 10/27/19 10:10 Eos # (Auto) 0.0 x10^3/uL (0.0-0.2) 10/27/19 10:10 Baso # (Auto) 0.0 X10^3/uL (0.0-0.1) 10/27/19 10:10 Absolute Nucleated RBC 0.0 /100WBC 10/27/19 10:10 Total Counted 100 10/27/19 10:10 Neutrophils % (Manual) 89 % (39-76) H 10/27/19 10:10 Band Neutrophils % 6 % (0-10) 10/27/19 10:10 Lymphocytes % (Manual) 4 % (13-43) L 10/27/19 10:10 Monocytes % (Manual) 1 % (4-9) L 10/27/19 10:10 Plt Morphology Comment Normal (NORMAL) 10/27/19 10:10 RBC Morphology Normal (NORMAL) 10/27/19 10:10 Sodium 137 mmol/L (136-145) 10/27/19 10:10 Corrected Sodium 138 mmol/L (136-145) 10/27/19 10:10 Potassium 4.9 mmol/L (3.5-5.1) 10/27/19 10:10 Chloride 106 mmol/L (98-107) 10/27/19 10:10 Carbon Dioxide 23.8 mmol/L (21-32) 10/27/19 10:10 BUN 24 mg/dL (7-18) H 10/27/19 10:10 Creatinine 1.92 mg/dL (0.70-1.30) H 10/27/19 10:10 Est GFR (MDRD) Af Amer 48 (>60) L 10/27/19 10:10 Est GFR (MDRD) Non-Af 40 (>60) L 10/27/19 10:10 Glucose 153 mg/dL (65-99) H 10/27/19 10:10 Lactic Acid 4.2 mmol/L (0.4-2.0) H 10/27/19 10:10 Calcium 7.5 mg/dL (8.5-10.1) L 10/27/19 10:10 Corrected Calcium 9.0 mg/dL (8.5-10.1) 10/27/19 10:10 Total Bilirubin 9.10 mg/dL (0.2-1.0) H 10/27/19 10:10 AST 61 Units/L (15-37) H 10/27/19 10:10 ALT 33 Units/L (12-78) 10/27/19 10:10 Alkaline Phosphatase 120 Units/L (46-116) H 10/27/19 10:10 B-Natriuretic Peptide 71.6 pg/mL (0-79) 10/27/19 10:10 Total Protein 4.7 g/dL (6.4-8.2) L 10/27/19 10:10 Albumin 2.1 g/dL (3.4-5.0) L 10/27/19 10:10 Globulin 2.6 g/dL (2.5-4.5) 10/27/19 10:10 Albumin/Globulin Ratio 0.8 Ratio (1.1-2.1) L 10/27/19 10:10 Specimen Type Clean catch urine 10/27/19 12:20 Urine Color [place] (YELLOW) 10/27/19 12:20 Urine Appearance Slightly hazy (CLEAR) 10/27/19 12:20 Urine pH 5.0 (5.0 - 8.0) 10/27/19 12:20 Ur Specific [place] 1.025 (1.000-1.030) 10/27/19 12:20 Urine Protein 2+ (NEGATIVE) 10/27/19 12:20 Urine Glucose (UA) 1+ (NEGATIVE) 10/27/19 12:20 Urine Ketones 2+ (NEGATIVE) 10/27/19 12:20 Urine Occult Blood 4+ (NEGATIVE) 10/27/19 12:20 Urine Nitrite Positive (NEGATIVE) 10/27/19 12:20 Urine Bilirubin 2+ (NEGATIVE) 10/27/19 12:20 Urine Urobilinogen 3+ (NORMAL) 10/27/19 12:20 Ur Leukocyte Esterase 1+ (NEGATIVE) 10/27/19 12:20 Urine RBC 3-5 /HPF (0-3) A 10/27/19 12:20 Urine WBC 3-5 /HPF (0-5) 10/27/19 12:20 Ur Squamous Epith Cells Rare /HPF (NEGATIVE) 10/27/19 12:20 Urine Bacteria Negative /HPF (NEGATIVE) 10/27/19 12:20 Fine Granular Casts Rare /LPF (NEGATIVE) 10/27/19 12:20 Ur Culture Indicated? No/not indicated 10/27/19 12:20 SARS-CoV-2 (PCR) Cancelled 10/27/19 10:10 S. pyogenes (TEM-PCR) Not detected (NOT DETECT) 10/27/19 10:10 Miscellaneous Test Covid 19 10/27/19 10:40 Opioid Opioid Risk Tool Personal Hx of Substance Abuse: Illegal Drugs Age (Edwin box if 16-45): No History of Preadolescent Sexual Abuse: No Total: 0 Total Score Risk Category: Low Risk Copyright: Ciaran BRENNAN predicting aberrant behaviors Instructions Instructions: Antibiotic Medicine, Adult Type 2 Diabetes Mellitus, Self Care, Adult, [id number] Diabetes Mellitus and Standards of Medical Care Cirrhosis Urinary Tract Infection, Adult, [id number] Cephalexin tablets or capsules Pantoprazole tablets Forms: Excuse From Work or School Precautions for COVID19 Patient Portal Social Distancing
== END 2019-10-30 14:51 | disposition home or self-care (01) | DRG 872 ==
LOC: ER 09:48 → MED/SURG 13:11 → ICU 18:20
PROVIDERS: ADMIT Internal Medicine; ATTEND Internal Medicine
DX: Z11.59 Encounter for screening for other viral diseases; R94.31 Abnormal electrocardiogram [ECG] [EKG]; E86.9 Volume depletion, unspecified; K21.9 Gastro-esophageal reflux disease without esophagitis; N40.1 Benign prostatic hyperplasia with lower urinary tract symptoms; N39.0 Urinary tract infection, site not specified; B18.1 Chronic viral hepatitis B without delta-agent; K29.80 Duodenitis without bleeding; R10.84 Generalized abdominal pain; A41.52 Sepsis due to Pseudomonas; D69.6 Thrombocytopenia, unspecified; R60.0 Localized edema; J90 Pleural effusion, not elsewhere classified; R50.9 Fever, unspecified; K29.60 Other gastritis without bleeding; K74.69 Other cirrhosis of liver; R06.02 Shortness of breath
CPT/HCPCS: 36415; 71010; 71045; 74000; 74018; 74176; 80053; 80061; 81001; 82009; 82140; 82150; 82270; 82533; 82550; 82553; 83036; 83605; 83690; 83735; 83880; 84100; 84153; 84439; 84443; 84484; 85025; 85610; 85652; 85730; 86140; 87040; 87077; 87086; 87186; 87517; 87635; 87651; 93005; 93970; 96365; 96374; 99284; A4216; C9113; J0696; J1940; J7030; J7050

== ENCOUNTER 2020-05-31 15:22 | Inpatient (IN) ==
[2020-05-31 17:38] LABS: BASOPHILS % (AUTO) 0.7 % (0.2-1.0); EOSINOPHILS # (AUTO) 0.1 x10^3/uL (0.0-0.2); EOSINOPHILS % (AUTO) 2.6 % (0.9-2.9); HEMATOCRIT 30.9 % (42.0-54.0); HEMOGLOBIN 11.1 g/dL (13.5-18.0); LYMPHOCYTES % (AUTO) 17.8 % (21.0-51.0); MEAN CORPUSCULAR HEMOGLOBIN 38.6 pg (27.0-34.0); MEAN CORPUSCULAR VOLUME 107.1 fL (80.0-100.0); MEAN PLATELET VOLUME 9.5 fL (7.4-11.0); MONOCYTES # (AUTO) 0.7 x10^3/uL (0.3-0.8); MONOCYTES % (AUTO) 12.8 % (0.0-13.0); NEUTROPHILS # (AUTO) 3.9 x10^3/uL (2.2-4.8); NEUTROPHILS % (AUTO) 66.1 % (42.0-75.0); RED BLOOD COUNT 2.89 X10^6/uL (4.7-6.0); RED CELL DISTRIBUTION WIDTH 14.5 % (11.6-16.5); WHITE BLOOD COUNT 5.8 X10^3/uL (3.6-10.0)
[2020-05-31] MEDS: PROTONIX INJ 40 MG VIAL IVP SCH (17:41)
[2020-05-31] MEDS: CHRONULAC PO SCH ×2 (17:42→22:08)
[2020-05-31 17:55] LABS: ALANINE AMINOTRANSFERASE 24 Units/L (12-78); ALBUMIN 1.8 g/dL (3.4-5.0); ALKALINE PHOSPHATASE 96 Units/L (46-116); ASPARTATE AMINO TRANSFERASE 50 Units/L (15-37); BLOOD UREA NITROGEN 23 mg/dL (7-18); CALCIUM 8.2 mg/dL (8.5-10.1); CARBON DIOXIDE 27.5 mmol/L (21-32); CHLORIDE 99 mmol/L (98-107); COR NA(FOR HYPERGLY) 135 mmol/L (136-145); CREATININE 1.49 mg/dL (0.70-1.30); SODIUM 133 mmol/L (136-145); TOTAL PROTEIN 4.4 g/dL (6.4-8.2); eGFR NON BLACK RACES 53 (>60)
[2020-05-31 18:10] LABS: PLATELET COUNT 57 X10^3/uL (150.0-450.0); PLATELET MORPHOLOGY COMMENT NORMAL (NORMAL)
[2020-05-31 22:05] VITALS: BMI 31.4
[2020-05-31] MEDS: XIFAXAN PO SCH (22:08)
[2020-05-31 22:35] LABS: BILIRUBIN,URINE NEGATIVE (NEGATIVE); BLOOD/HEMOGLOBIN,URINE 2+ (NEGATIVE); GLUCOSE, URINE NEGATIVE (NEGATIVE); KETONES,URINE NEGATIVE (NEGATIVE); LEUKOCYTE ESTERASE ,URINE NEGATIVE (NEGATIVE); NITRITES,URINE NEGATIVE (NEGATIVE); PROTEIN,URINE NEGATIVE (NEGATIVE); UROBILINOGEN,URINE 1+ (NORMAL)
[2020-05-31 22:44] LABS: AMORPHOUS SEDIMENT,UR 2+ /HPF (NEGATIVE); APPEARANCE,URINE CLEAR (CLEAR); BACTERIA,URINE TRACE /HPF (NEGATIVE); COLOR,URINE YELLOW (YELLOW); RBC,URINE 0-2 /HPF (0-3); SQUAMOUS EPITHELIAL CELL,UR NEGATIVE /HPF (NEGATIVE)
[2020-06-01] MEDS: CHRONULAC PO SCH ×3 (05:36→21:43)
--- NOTE | 2020-06-01 08:38 | RAD ---
HISTORYASCITES CIRRHOSIS OF THE LIVERSTUDYACUTE ABDOMEN SERIESCOMPARISONNoneFINDINGSThe trachea is midline. The cardiac silhouette is [unremarkable]. [The lungs are clear without focal mass or consolidation. There is no effusion or pneumothorax.] [The bony thorax is unremarkable].Flat plate and upright evaluation of the abdomen demonstrates a [normal bowel gas pattern]. There is no pneumoperitoneum. No pathological soft tissue mass or calcification can be observed. The bony structures are grossly intact.IMPRESSION1. [No acute cardiopulmonary disease.]2. [No evidence for acute abdominal pathology identified.]Electronically signed by: LACEY ESPOSITO (Jun 01, 2020 08:37:39)
--- NOTE | 2020-06-01 08:41 | DR.H&P ---
H&P - History & Physical for Day of: H&P Date: 05/31/20 - Chief Complaint Chief Complaint: AMS, LIVER FAILURE, ABDOMEN SWELLING - History of Present Illness History of Present Illness: PT IS 49 WM DIRECT ADMIT FROM DR FONSECA OFFICE WITH CO AMS, DIFFUSE ABDOMINAL DISTENTION AND LOWER EXTREMITY EDEMA. PT HAS END STAGE LIVER FAILURE WITH THROMBOCYTOPENIA. PT JAUNDICE, WORSE THAN NORMAL. RECENTLY HAD PARACENTESIS AT [facility] 2 WEEKS AGO, CO ABD MORE DISTENDED. - Past Medical History Past Medical History: Cirrhosis, GERD - Past Surgical History Surgical History: No History - Family History Family Medical History: Diabetes Mellitus, [place], Coronary Artery Disease, Hypertension - Social History Does patient currently use any type of tobacco product: Yes Have you used tobacco products in the last 12 months: Yes Type of Tobacco Use: Cigarettes Does any household member use tobacco: No Alcohol Use: None Drug Use: None - Medications Home Medications: No Known Drug Allergies Allergy (Verified 08/24/17 12:43) - Review of Systems Constitutional: Weakness Eyes: No Symptoms Reported ENT: No Symptoms Reported Respiratory: SOB with Excertion Cardiovascular: Edema Gastrointestinal: Nausea, Abdominal Pain Genitourinary: No Symptoms Reported Musculoskeletal: No Symptoms Reported Skin: No Symptoms Reported Neurological: Weakness, Confusion - Physical Exam Vital Signs: Temperature 98.2 F Pulse Rate [Right Brachial] 100 Respiratory Rate 18 Blood Pressure [Left Arm] 142/74 Blood Pressure [Right Arm] 158/92 O2 Sat by Pulse Oximetry 93 Oriented: Normal Eyes: Normal Nose: Normal Throat: Normal Respiratory: RLL Diminished, LLL Diminished Cardiovascular: Normal : Normal Palpation: Normal Tenderness: Normal Skin: Decreased Turgur Musculoskeletal: Leg, Back:Lumbar, Swelling, Tender Psychiatric: Anxiety Affect: Anxious Speech Pattern: Appropriate, Slurred - Assessment/Plan (1) Ascites Status: Acute Plan: ADMIT, AMMONIA LEVEL, CONTINUE LACTULOSE. STRICT I&OS, CONSULT DR MARIO. VERIFY HOME MEDICATION, BP CONTROL. 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
[2020-06-01] MEDS: PROTONIX INJ 40 MG VIAL IVP SCH (08:54)
[2020-06-01 08:55] LABS: BASOPHILS # (AUTO) 0.2 X10^3/uL (0.0-0.1); BASOPHILS % (AUTO) 4.3 % (0.2-1.0); EOSINOPHILS # (AUTO) 0.1 x10^3/uL (0.0-0.2); EOSINOPHILS % (AUTO) 2.9 % (0.9-2.9); HEMATOCRIT 29.6 % (42.0-54.0); HEMOGLOBIN 10.9 g/dL (13.5-18.0); LYMPHOCYTES # (AUTO) 0.4 X10^3/uL (1.3-2.9); LYMPHOCYTES % (AUTO) 10.1 % (21.0-51.0); MEAN CORPUSCULAR HEMOGLOBIN 38.8 pg (27.0-34.0); MEAN CORPUSCULAR HGB CONC 36.7 g/dL (33.0-35.0); MEAN CORPUSCULAR VOLUME 105.7 fL (80.0-100.0); MEAN PLATELET VOLUME 7.9 fL (7.4-11.0); MONOCYTES # (AUTO) 0.5 x10^3/uL (0.3-0.8); MONOCYTES % (AUTO) 11.1 % (0.0-13.0); NEUTROPHILS # (AUTO) 3.2 x10^3/uL (2.2-4.8); NEUTROPHILS % (AUTO) 71.6 % (42.0-75.0); PLATELET COUNT 48 X10^3/uL (150.0-450.0); RED CELL DISTRIBUTION WIDTH 14.4 % (11.6-16.5); WHITE BLOOD COUNT 4.4 X10^3/uL (3.6-10.0)
[2020-06-01] MEDS: XIFAXAN PO SCH ×2 (08:55→20:22)
[2020-06-01 08:59] LABS: AMMONIA 46 umol/L (11-32)
[2020-06-01 09:12] LABS: ALANINE AMINOTRANSFERASE 20 Units/L (12-78); ALBUMIN 1.6 g/dL (3.4-5.0); ALKALINE PHOSPHATASE 79 Units/L (46-116); ASPARTATE AMINO TRANSFERASE 50 Units/L (15-37); BLOOD UREA NITROGEN 22 mg/dL (7-18); CALCIUM 8.2 mg/dL (8.5-10.1); CARBON DIOXIDE 29.6 mmol/L (21-32); CHLORIDE 102 mmol/L (98-107); COR CA(FOR HYPOALB) 10.1 mg/dL (8.5-10.1); CREATININE 1.45 mg/dL (0.70-1.30); SODIUM 134 mmol/L (136-145); TOTAL PROTEIN 4.1 g/dL (6.4-8.2); eGFR NON BLACK RACES 55 (>60)
[2020-06-01 09:14] LABS: PLATELET MORPHOLOGY COMMENT NORMAL (NORMAL)
[2020-06-01] MEDS: LAMIVUDINE 150 MG PO SCH (10:58)
[2020-06-01] MEDS ORDERED: ANCEF VIAL 1 GRAM IVP ONE (14:19)
[2020-06-01] MEDS: ALBUMIN HUMAN 25%- 100 ML 100 ML IV SCH (14:52)
[2020-06-01] MEDS: ROXICODONE TAB 5 MG PO PRN (17:46)
[2020-06-01] MEDS ORDERED: VISTARIL PO PRN (20:07)
[2020-06-02] MEDS: ROXICODONE TAB 5 MG PO PRN (01:52)
[2020-06-02] MEDS: CHRONULAC PO SCH (05:21)
--- NOTE | 2020-06-02 05:32 | RAD ---
HISTORYEND STAGE LIVER FAILURE/POST PARACENTESISSTUDYCHEST, 1 [id number]/2020FINDINGSThe trachea is midline. The cardiac silhouette is unremarkable . The lungs are clear without focal infiltrate or effusion. Pulmonary vasculature within normal limits. No pneumothorax. The bony thorax is unremarkable.IMPRESSIONNo acute cardiopulmonary disease.Electronically signed by: Govind Mendoza (Jun 02, 2020 05:30:36)
[2020-06-02 06:35] LABS: BASOPHILS % (AUTO) 0.4 % (0.2-1.0); EOSINOPHILS # (AUTO) 0.1 x10^3/uL (0.0-0.2); EOSINOPHILS % (AUTO) 2.7 % (0.9-2.9); HEMATOCRIT 33.6 % (42.0-54.0); HEMOGLOBIN 11.7 g/dL (13.5-18.0); LYMPHOCYTES # (AUTO) 0.8 X10^3/uL (1.3-2.9); LYMPHOCYTES % (AUTO) 16.9 % (21.0-51.0); MEAN CORPUSCULAR HEMOGLOBIN 37.4 pg (27.0-34.0); MEAN CORPUSCULAR HGB CONC 34.9 g/dL (33.0-35.0); MEAN CORPUSCULAR VOLUME 107.1 fL (80.0-100.0); MEAN PLATELET VOLUME 9.3 fL (7.4-11.0); MONOCYTES # (AUTO) 0.7 x10^3/uL (0.3-0.8); MONOCYTES % (AUTO) 13.9 % (0.0-13.0); NEUTROPHILS # (AUTO) 3.2 x10^3/uL (2.2-4.8); NEUTROPHILS % (AUTO) 66.1 % (42.0-75.0); PLATELET COUNT 56 X10^3/uL (150.0-450.0); RED BLOOD COUNT 3.14 X10^6/uL (4.7-6.0); RED CELL DISTRIBUTION WIDTH 14.9 % (11.6-16.5); WHITE BLOOD COUNT 4.9 X10^3/uL (3.6-10.0)
[2020-06-02 06:36] LABS: ALANINE AMINOTRANSFERASE 15 Units/L (12-78); ALBUMIN 1.9 g/dL (3.4-5.0); ALKALINE PHOSPHATASE 91 Units/L (46-116); ASPARTATE AMINO TRANSFERASE 40 Units/L (15-37); BLOOD UREA NITROGEN 19 mg/dL (7-18); CALCIUM 8.4 mg/dL (8.5-10.1); CARBON DIOXIDE 27.5 mmol/L (21-32); CHLORIDE 103 mmol/L (98-107); COR CA(FOR HYPOALB) 10.1 mg/dL (8.5-10.1); COR NA(FOR HYPERGLY) 137 mmol/L (136-145); CREATININE 1.37 mg/dL (0.70-1.30); SODIUM 134 mmol/L (136-145); TOTAL PROTEIN 4.1 g/dL (6.4-8.2); eGFR NON BLACK RACES 59 (>60)
[2020-06-02 06:54] LABS: PLATELET MORPHOLOGY COMMENT NORMAL (NORMAL)
[2020-06-02 06:58] LABS: BURR CELLS 3+
[2020-06-02] MEDS: ALBUMIN HUMAN 25%- 100 ML 100 ML IV SCH (08:27)
[2020-06-02] MEDS: LAMIVUDINE 150 MG PO SCH (08:27)
[2020-06-02] MEDS: PROTONIX INJ 40 MG VIAL IVP SCH (08:28)
[2020-06-02] MEDS: XIFAXAN PO SCH (08:28)
[2020-06-02] MEDS ORDERED: XANAX PO ONE (09:35)
[2020-06-02 12:05] VITALS: BP 166/93
== END 2020-06-02 14:20 | disposition home or self-care (01) | DRG 442 ==
LOC: OBS → OBSVTOIN 15:23
PROVIDERS: ADMIT Internal Medicine; ATTEND Internal Medicine
DX: B19.10 Unspecified viral hepatitis B without hepatic coma; D64.89 Other specified anemias; R60.0 Localized edema; R26.89 Other abnormalities of gait and mobility; D69.6 Thrombocytopenia, unspecified; R06.02 Shortness of breath; R18.8 Other ascites; K21.9 Gastro-esophageal reflux disease without esophagitis; K72.90 Hepatic failure, unspecified without coma; K74.69 Other cirrhosis of liver; R41.82 Altered mental status, unspecified; R79.1 Abnormal coagulation profile

== ENCOUNTER 2023-01-18 12:14 | Inpatient (IN) ==
--- NOTE | 2023-01-18 12:45 | DR.H&P ---
H&P - History & Physical for Day of: H&P Date: 01/18/23 - Chief Complaint Chief Complaint: FEVER, UTI, SOB, - History of Present Illness History of Present Illness: PT IS 52 MW, DIRECT ADMIT FROM DR HILL OFFICE WITH CO FEVER, SOB AND ABDOMINAL PAIN WITH NON HEALING WOUND ALONG HERNIA REPAIR SCAR. PT HAS HX OF LIVER TRANSPLANT IN 2020, UNDER THE CARE OF JORGE IN [place]. PT HAD HERNIA REPAIR LAST MONTH. PT REPORTS ONSET OF SOB ~ WEEKS AGO. CXR ON 01/09 WITHOUT ACUTE FINDINGS. PT HAS ONSET OF FEVER, OPENED WOUND ALONG CENTRAL ABDOMINAL SCAR (POSSIBL SEROMA) AND CO DARK URINE, UTI. PT WAS TAKING PO CIPRO SINCE THIS WEEKEND. PT HAD OUTPT LABS REVEALING UTI, DEHYDRATION, ELEVATED BILI AND HIGH D-DIMER. PT ADMITTED FOR TREATMENT OF ACUTE ILLNESS. - Past Medical History Past Medical History: Arthritis, Headaches, Hypertension, Liver Disease Additional Medical History: S/P LIVER TRANSPLANT 2020 - Past Surgical History Surgical History: Cholecystectomy Additional Surgical History: LIVER TRANSPLANT 2020. HERNIA REPAIR 12/12 - Family History Family Medical History: Diabetes Mellitus, Cancer, [place] - Social History Does patient currently use any type of tobacco product: No Have you used tobacco products in the last 12 months: No Type of Tobacco Use: None Does any household member use tobacco: No Alcohol Use: None Drug Use: None - Review of Systems Constitutional: Fever, Chills, Weakness, Malaise Eyes: No Symptoms Reported ENT: No Symptoms Reported Respiratory: Shortness of Breath Cardiovascular: Edema Gastrointestinal: Nausea, Vomiting, Abdominal Pain Genitourinary: Retention, Other (DARK "TEA COLORED" URINE) Musculoskeletal: Back Pain Skin: No Symptoms Reported Neurological: No Symptoms Reported Oriented: Normal, Person Ear: Normal Nose: Normal Throat: Normal Respiratory: RLL Diminished, LLL Diminished Cardiovascular: Edema. negative: Tachycardia Auscultation: Bowel Sounds: Normal Palpation: Liver Enlarged Tenderness: Diffuse Skin: Decreased Turgur, Wound Musculoskeletal: Back:Lumbar Psychiatric: Anxiety Affect: Anxious Speech Pattern: Clear, Appropriate - Assessment/Plan (1) Post-operative wound abscess Status: Acute Plan: ADMIT, IV HYDRATION AND IV ATBX ON ADMISSION. BLOOD WOUND AND URINE CULTURE ON ADMISSION. CT ABD/PELVIS. CTA CHEST RO PE, CE AND EKG ON ADMISSION. VERIFY HOME MEDICATION. ROOM AIR ABG, PRN SUPPLEMENTAL O2. PT/PTT/INR ON ADMISSION (2) Acute renal insufficiency Status: Acute (3) Elevated bilirubin Status: Acute (4) History of liver transplant Status: Acute (5) UTI (urinary tract infection) Status: Acute - Allergies Allergies/Adverse Reactions: Allergies Allergy/AdvReac Type Severity Reaction Status Date / Time No Known Drug Allergies Allergy Verified 06/09/20 09:31 - Medications Home Medications: Home Medications Medication Instructions Recorded Confirmed esomeprazole magnesium 40 mg 40 mg PO DAILY 06/22/19 05/06/21 capsule,delayed release (Nexium) lactulose 10 gram/15 mL oral 20 g PO BID 06/22/19 05/06/21 solution lamivudine 150 mg tablet 150 mg PO DAILY 06/22/19 05/06/21 rifaximin 550 mg tablet (Xifaxan) 550 mg PO BID 06/22/19 05/06/21 clonidine HCl 0.1 mg tablet 0.2 mg PO TID 05/06/21 05/07/21 lisinopril 10 mg tablet 20 mg PO DAILY 05/06/21 05/07/21 metoprolol tartrate 100 mg tablet 100 mg PO BID 05/06/21 05/07/21 Previous Rx's Medication Instructions Recorded sertraline 25 mg tablet (Zoloft) 25 mg PO Q24H #30 tabs 06/02/20 diclofenac sodium 75 mg 75 mg PO BID PRN w/food, prn 04/23/21 tablet,delayed release pain/inflammation #20 tabs diclofenac potassium 50 mg tablet 50 mg PO BID #30 tabs 05/07/21 hydralazine 50 mg tablet 50 mg PO TID #60 tabs 05/07/21
[2023-01-18] MEDS ORDERED: FLOMAX PO SCH (13:00)
[2023-01-18 14:02] LABS: ABG ALLEN TEST POS; ABG BASE EXCESS 4.3 mmol/L (-2.0-2.0); ABG HCO3 26.9 mmol/L (22-26)
--- NOTE | 2023-01-18 14:04 | EKG ---
Test Reason : SOB Blood Pressure : */* mmHG Vent. Rate : 97 BPM Atrial Rate : 97 BPM P-R Int : 128 ms QRS Dur : 78 ms QT Int : 386 ms P-R-T Axes : 59 200 -63 degrees QTc Int : 490 ms Normal sinus rhythm Possible Right ventricular hypertrophy Possible Anterolateral infarct , age undetermined Abnormal ECG No previous ECGs available Confirmed by Tito Alfonso ([id number]) on 01/19/2023 4:50:43 PM Referred By: Confirmed By: Tito Alfonso
[2023-01-18 14:05] VITALS: BMI 26.4
[2023-01-18] MEDS ORDERED: OMNIPAQUE 350 mg/mL 100 mL BTL 100 ML ONE (14:56)
[2023-01-18] MEDS ORDERED: OMNIPAQUE 350 mg/mL 50 mL BTL 50 ML ONE (14:56)
[2023-01-18 15:39] LABS: INR 1.45 (0.8-1.3)
--- NOTE | 2023-01-18 16:09 | CT ---
EXAM:ABDCMEN/PELVIS WITH CONHISTORY:non healing post op abdomen wound, fever;COMPARISON:10/28/2019.TECHNIQUE:Fo llowing the intravenous administration of iodinated contrast, spiral CT imaging was performed through the abdomen and pelvis and axial, coronal, and sagittal CT images were generated.FINDINGS:There is mild dependent basilar atelectasis and trace effusions. The heart size is normal. There is a small pericardial effusion. There is mild fatty infiltration of the liver and probably cirrhosis. The gallbladder has been removed. Pancreas is normal. Spleen is enlarged and measures 14.3 cm in diameter. There are large splenorenal varices in the left side of the abdomen. The adrenal glands are normal. The kidneys are mildly atrophic but have normal enhancement without mass or hydronephrosis. There is questionably some wall thickening of the distal stomach; question gastritis or peptic ulcer disease. Small bowel loops are unremarkable. The appendix is normal. The large bowel is normal. The urinary bladder and prostate are normal. There is a small fat containing right inguinal. There is a midline ventral incision which appears to be healing by secondary intention. There is no significant abscess identified. There is induration the subcutaneous fatty layer throughout the abdomen likely related to the recent surgery. There are no worrisome bone marrow lesions.IMPRESSION:1. Cirrhosis and splenomegaly with portosystemic shunting.2. Question gastritis or peptic ulcer disease.3. No abscess or other complication related to the ventral incision.THIS IS AN ELECTRONICALLY VERIFIED FINAL REPORT01/18/2023 4:05 PM - Electronically signed by Stephan Morgan MD
--- NOTE | 2023-01-18 16:13 | CT ---
EXAM:CTA, CHESTHISTORY:elevated ddimer, sob;COMPARISON:None.TECHNIQUE:Following the intravenous administration of iodinated contrast, spiral CT imaging was performed through the chest and axial, coronal, and sagittal CT images were generated. Multiplanar 3D images were also generated.FINDINGS:The heart size is enlarged. There is a small to moderate pericardial effusion. There is mild gynecomastia main pulmonary artery measures 3.9 cm diameter this indicates pulmonary hypertension. The RV/LV ratio measures 1.5 and this also suggest right heart strain. There is excellent contrast enhancement in the pulmonary circulation and there is no evidence of pulmonary embolus. There is no pathologic adenopathy. The airways are grossly clear. There is bronchial wall thickening. There is mild opacity the dependent lungs suggestive of atelectasis. There is a small cavitation in the left upper lobe which is probably postinfectious. There is no worrisome bone marrow lesion in the shoulders, clavicles, or in the ribs. The thoracic spine is intact without fracture or worrisome lesion.IMPRESSION:1. Cardiomegaly with right ventricular dilation and pulmonary artery hypertension.2. Small to moderate pericardial effusion.3. Negative for pulmonary embolus.4. Bronchial wall thickening and minor basilar atelectasis.5. Cavitation in the left upper lobe which is probably postinfectious and chronic.THIS IS AN ELECTRONICALLY VERIFIED FINAL REPORT01/18/2023 4:10 PM - Electronically signed by Stephan Morgan MD
[2023-01-18] MEDS: NS 1,000 ML IV 1,000 ML IV SCH (16:30)
[2023-01-18] MEDS: PROTONIX INJ 40 MG VIAL IVP SCH (16:31)
[2023-01-18] MEDS: ROCEPHIN VIAL 1 GRAM 1 G in NS 100 ML IV 100 ML IV SCH (16:31)
[2023-01-18 19:29] LABS: BILIRUBIN,URINE NEGATIVE (NEGATIVE); BLOOD/HEMOGLOBIN,URINE 3+ (NEGATIVE); GLUCOSE, URINE NEGATIVE (NEGATIVE); KETONES,URINE NEGATIVE (NEGATIVE); LEUKOCYTE ESTERASE ,URINE NEGATIVE (NEGATIVE); NITRITES,URINE NEGATIVE (NEGATIVE); PROTEIN,URINE 3+ (NEGATIVE); UROBILINOGEN,URINE 2+ (NORMAL)
[2023-01-18 19:36] LABS: APPEARANCE,URINE CLEAR (CLEAR); COLOR,URINE DARK YELLOW (YELLOW)
[2023-01-18 19:37] LABS: BACTERIA,URINE NEGATIVE /HPF (NEGATIVE); SQUAMOUS EPITHELIAL CELL,UR RARE /HPF (NEGATIVE)
[2023-01-18] MEDS: MORPHINE SULFATE INJ 2 MG INJ IVP PRN (20:06)
[2023-01-18] MEDS: FLOMAX PO SCH (20:11)
[2023-01-19] MEDS: NS 1,000 ML IV 1,000 ML IV SCH ×3 (03:15→20:20)
[2023-01-19 05:44] LABS: BASOPHILS % (AUTO) 0.9 % (0.2-1.0); EOSINOPHILS # (AUTO) 0.1 x10^3/uL (0.0-0.2); EOSINOPHILS % (AUTO) 1.9 % (0.9-2.9); HEMATOCRIT 42.4 % (42.0-54.0); HEMOGLOBIN 13.7 g/dL (13.5-18.0); LYMPHOCYTES # (AUTO) 1.6 X10^3/uL (1.3-2.9); LYMPHOCYTES % (AUTO) 38.4 % (21.0-51.0); MEAN CORPUSCULAR HEMOGLOBIN 29.4 pg (27.0-34.0); MEAN CORPUSCULAR HGB CONC 32.3 g/dL (33.0-35.0); MEAN CORPUSCULAR VOLUME 90.9 fL (80.0-100.0); MEAN PLATELET VOLUME 10.6 fL (7.4-11.0); MONOCYTES # (AUTO) 0.4 x10^3/uL (0.3-0.8); MONOCYTES % (AUTO) 9.2 % (0.0-13.0); NEUTROPHILS # (AUTO) 2.1 x10^3/uL (2.2-4.8); NEUTROPHILS % (AUTO) 49.6 % (42.0-75.0); PLATELET COUNT 66 X10^3/uL (150.0-450.0); RED BLOOD COUNT 4.67 X10^6/uL (4.7-6.0); RED CELL DISTRIBUTION WIDTH 21.7 % (11.6-16.5); WHITE BLOOD COUNT 4.2 X10^3/uL (3.6-10.0)
[2023-01-19] MEDS: ZOFRAN INJ 4 MG VIAL IVP PRN ×2 (05:50→20:22)
[2023-01-19 05:55] LABS: ALANINE AMINOTRANSFERASE 17 Units/L (12-78); ALBUMIN 2.7 g/dL (3.4-5.0); ALKALINE PHOSPHATASE 61 Units/L (46-116); ASPARTATE AMINO TRANSFERASE 23 Units/L (15-37); BLOOD UREA NITROGEN 20 mg/dL (7-18); CALCIUM 7.9 mg/dL (8.5-10.1); CARBON DIOXIDE 27.4 mmol/L (21-32); CHLORIDE 105 mmol/L (98-107); COR CA(FOR HYPOALB) 8.9 mg/dL (8.5-10.1); CREATININE 1.22 mg/dL (0.70-1.30); GLUCOSE 94 mg/dL (65-99); POTASSIUM 3.8 mmol/L (3.5-5.1); SODIUM 142 mmol/L (136-145); TOTAL PROTEIN 5.4 g/dL (6.4-8.2); eGFR NON BLACK RACES > 60 (>60)
[2023-01-19 06:01] LABS: ANISOCYTOSIS 1+; PLATELET MORPHOLOGY COMMENT NORMAL (NORMAL)
[2023-01-19] MEDS ORDERED: CONSULT PHARMACY - POTASSIUM & MAGNESIUM XX SCH (07:00)
[2023-01-19] MEDS: ROCEPHIN VIAL 1 GRAM 1 G in NS 100 ML IV 100 ML IV SCH (08:29)
[2023-01-19] MEDS: PROTONIX INJ 40 MG VIAL IVP SCH (08:29)
[2023-01-19] MEDS ORDERED: K-DUR TAB 20 MEQ PO SCH (09:00)
[2023-01-19] MEDS ORDERED: ZESTRIL TAB 20 MG ONE (09:53)
[2023-01-19] MEDS: ZESTRIL TAB 20 MG PO SCH (09:57)
[2023-01-19] MEDS: PATIENT'S HOME MEDICATION PO SCH ×3 (09:57→20:22)
[2023-01-19] MEDS: PREDNISONE TAB 5 MG PO SCH (10:11)
[2023-01-19] MEDS: MORPHINE SULFATE INJ 2 MG INJ IVP PRN ×2 (14:57→20:23)
[2023-01-19] MEDS: FLOMAX PO SCH (20:22)
[2023-01-20 05:16] LABS: BASOPHILS % (AUTO) 0.9 % (0.2-1.0); EOSINOPHILS # (AUTO) 0.1 x10^3/uL (0.0-0.2); HEMATOCRIT 42.1 % (42.0-54.0); HEMOGLOBIN 13.7 g/dL (13.5-18.0); LYMPHOCYTES # (AUTO) 1.5 X10^3/uL (1.3-2.9); MEAN CORPUSCULAR HEMOGLOBIN 29.6 pg (27.0-34.0); MEAN CORPUSCULAR HGB CONC 32.5 g/dL (33.0-35.0); MEAN CORPUSCULAR VOLUME 91.2 fL (80.0-100.0); MEAN PLATELET VOLUME 10.2 fL (7.4-11.0); MONOCYTES # (AUTO) 0.4 x10^3/uL (0.3-0.8); MONOCYTES % (AUTO) 10.6 % (0.0-13.0); NEUTROPHILS # (AUTO) 1.7 x10^3/uL (2.2-4.8); NEUTROPHILS % (AUTO) 46.5 % (42.0-75.0); PLATELET COUNT 56 X10^3/uL (150.0-450.0); RED BLOOD COUNT 4.62 X10^6/uL (4.7-6.0); RED CELL DISTRIBUTION WIDTH 21.3 % (11.6-16.5); WHITE BLOOD COUNT 3.6 X10^3/uL (3.6-10.0)
[2023-01-20 05:31] LABS: ALANINE AMINOTRANSFERASE 14 Units/L (12-78); ALBUMIN 2.5 g/dL (3.4-5.0); ALKALINE PHOSPHATASE 63 Units/L (46-116); ASPARTATE AMINO TRANSFERASE 17 Units/L (15-37); BLOOD UREA NITROGEN 16 mg/dL (7-18); CALCIUM 7.9 mg/dL (8.5-10.1); CARBON DIOXIDE 24.3 mmol/L (21-32); CHLORIDE 107 mmol/L (98-107); COR CA(FOR HYPOALB) 9.1 mg/dL (8.5-10.1); COR NA(FOR HYPERGLY) 140 mmol/L (136-145); CREATININE 1.02 mg/dL (0.70-1.30); GLUCOSE 115 mg/dL (65-99); MAGNESIUM 1.6 mg/dL (2.0-2.9); SODIUM 140 mmol/L (136-145); TOTAL PROTEIN 5.2 g/dL (6.4-8.2); eGFR NON BLACK RACES > 60 (>60)
[2023-01-20 05:37] LABS: ANISOCYTOSIS 1+; PLATELET MORPHOLOGY COMMENT NORMAL (NORMAL)
[2023-01-20] MEDS ORDERED: CONSULT PHARMACY - POTASSIUM & MAGNESIUM XX SCH (06:00)
[2023-01-20] MEDS ORDERED: ZESTRIL TAB 20 MG ONE (09:34)
[2023-01-20] MEDS: ROCEPHIN VIAL 1 GRAM 1 G in NS 100 ML IV 100 ML IV SCH (09:39)
[2023-01-20] MEDS: PATIENT'S HOME MEDICATION PO SCH ×3 (09:40→20:26)
[2023-01-20] MEDS: PROTONIX INJ 40 MG VIAL IVP SCH (09:42)
[2023-01-20] MEDS: PREDNISONE TAB 5 MG PO SCH (09:42)
[2023-01-20] MEDS: ZESTRIL TAB 20 MG PO SCH (09:42)
[2023-01-20] MEDS: MAG-OX TAB PO SCH ×2 (09:43→10:15)
[2023-01-20] MEDS: MORPHINE SULFATE INJ 2 MG INJ IVP PRN ×2 (09:51→20:27)
[2023-01-20] MEDS: NS 1,000 ML IV 1,000 ML IV SCH (10:13)
[2023-01-20] MEDS: ZYVOX 600MG IV 600 MG/300 ML BAG IV SCH ×2 (12:00→20:25)
[2023-01-20] MEDS: FLOMAX PO SCH (20:26)
[2023-01-20] MEDS: ZOFRAN INJ 4 MG VIAL IVP PRN (20:26)
--- NOTE | 2023-01-20 22:48 | RAD ---
EXAM:CHEST, 1 VIEWHISTORY:SOB;COMPARISON:None. r.br.br obtained.FINDINGS:There is moderate to severe cardiomegaly. There is mild pulmonary edema. There is no effusion. There is no pneumothorax. The osseous structures are intact.IMPRESSION:Moderate to severe cardiomegaly with minimal pulmonary edema.THIS IS AN ELECTRONICALLY VERIFIED FINAL [id number]/20/2023 10:45 PM - Electronically signed by Raiza Wadsworth MD
[2023-01-21] MEDS: NS 1,000 ML IV 1,000 ML IV SCH (02:54)
[2023-01-21 05:45] LABS: BASOPHILS % (AUTO) 0.7 % (0.2-1.0); EOSINOPHILS # (AUTO) 0.1 x10^3/uL (0.0-0.2); EOSINOPHILS % (AUTO) 2.1 % (0.9-2.9); HEMATOCRIT 44.6 % (42.0-54.0); HEMOGLOBIN 14.5 g/dL (13.5-18.0); LYMPHOCYTES # (AUTO) 1.5 X10^3/uL (1.3-2.9); MEAN CORPUSCULAR HEMOGLOBIN 29.6 pg (27.0-34.0); MEAN CORPUSCULAR HGB CONC 32.4 g/dL (33.0-35.0); MEAN CORPUSCULAR VOLUME 91.4 fL (80.0-100.0); MEAN PLATELET VOLUME 10.3 fL (7.4-11.0); MONOCYTES # (AUTO) 0.4 x10^3/uL (0.3-0.8); NEUTROPHILS % (AUTO) 49.2 % (42.0-75.0); PLATELET COUNT 51 X10^3/uL (150.0-450.0); RED BLOOD COUNT 4.88 X10^6/uL (4.7-6.0); RED CELL DISTRIBUTION WIDTH 21.2 % (11.6-16.5)
[2023-01-21] MEDS: MORPHINE SULFATE INJ 2 MG INJ IVP PRN ×3 (05:51→19:17)
[2023-01-21] MEDS: ZOFRAN INJ 4 MG VIAL IVP PRN ×3 (05:52→19:17)
[2023-01-21 05:56] LABS: ALANINE AMINOTRANSFERASE 20 Units/L (12-78); ALBUMIN 2.6 g/dL (3.4-5.0); ALKALINE PHOSPHATASE 72 Units/L (46-116); ASPARTATE AMINO TRANSFERASE 27 Units/L (15-37); BLOOD UREA NITROGEN 12 mg/dL (7-18); CALCIUM 8.1 mg/dL (8.5-10.1); CARBON DIOXIDE 23.7 mmol/L (21-32); CHLORIDE 105 mmol/L (98-107); COR CA(FOR HYPOALB) 9.2 mg/dL (8.5-10.1); COR NA(FOR HYPERGLY) 139 mmol/L (136-145); CREATININE 0.93 mg/dL (0.70-1.30); GLUCOSE 126 mg/dL (65-99); MAGNESIUM 1.5 mg/dL (2.0-2.9); POTASSIUM 4.2 mmol/L (3.5-5.1); SODIUM 138 mmol/L (136-145); TOTAL PROTEIN 5.6 g/dL (6.4-8.2); eGFR NON BLACK RACES > 60 (>60)
[2023-01-21 05:58] LABS: ANISOCYTOSIS 1+; PLATELET MORPHOLOGY COMMENT NORMAL (NORMAL)
[2023-01-21] MEDS ORDERED: CONSULT PHARMACY - POTASSIUM & MAGNESIUM XX SCH (07:00)
[2023-01-21] MEDS ORDERED: ZESTRIL TAB 20 MG ONE (08:14)
[2023-01-21] MEDS ORDERED: MAG-OX TAB PO SCH (09:00)
[2023-01-21] MEDS: NS 1,000 ML IV 1,000 ML with MAGNESIUM SULFATE 50% INJ VIAL 1 G IV SCH ×4 (09:25→21:03)
[2023-01-21] MEDS: ZESTRIL TAB 20 MG PO SCH (09:26)
[2023-01-21] MEDS: PREDNISONE TAB 5 MG PO SCH (09:27)
[2023-01-21] MEDS: ROCEPHIN VIAL 1 GRAM 1 G in NS 100 ML IV 100 ML IV SCH (09:27)
[2023-01-21] MEDS: ZYVOX 600MG IV 600 MG/300 ML BAG IV SCH ×2 (09:27→21:02)
[2023-01-21] MEDS: PROTONIX INJ 40 MG VIAL IVP SCH (09:27)
[2023-01-21] MEDS: PATIENT'S HOME MEDICATION PO SCH ×3 (09:28→21:02)
[2023-01-21] MEDS: LASIX IVP SCH ×2 (09:28→17:12)
[2023-01-21] MEDS: MICRO K EXTEN CAP 10 MEQ PO SCH ×2 (09:28→21:00)
[2023-01-21 10:29] LABS: ABG ALLEN TEST POS; ABG BASE EXCESS -0.5 mmol/L (-2.0-2.0); ABG HCO3 22.9 mmol/L (22-26)
[2023-01-21] MEDS ORDERED: TENOFOVIR ALAFENAMIDE 25 MG PO SCH (12:30)
[2023-01-21] MEDS ORDERED: EVEROLIMUS 0.5 MG PO SCH (12:30)
[2023-01-21] MEDS ORDERED: MYCOPHENOLATE MOFETIL 250 MG PO SCH (12:30)
--- NOTE | 2023-01-21 13:40 | RAD ---
EXAM:CHEST, 1 VIEWHISTORY:SOB;COMPARISON:01/20/2023. br.br.br.br chestFINDINGS:Cardiac silhouette is mildly enlarged. Mediastinal contours appear normal. Mild bilateral scattered interstitial opacities appear similar. No definite pleural effusion pneumothorax.IMPRESSION:Mild cardiomegaly. Interstitial opacities are nonspecific but may represent mild pulmonary edema.THIS IS AN ELECTRONICALLY VERIFIED FINAL [id number]/21/2023 1:36 PM - Electronically signed by Trey Choi MD
[2023-01-21 17:45] LABS: BILIRUBIN,URINE NEGATIVE (NEGATIVE); BLOOD/HEMOGLOBIN,URINE 4+ (NEGATIVE); GLUCOSE, URINE NEGATIVE (NEGATIVE); KETONES,URINE NEGATIVE (NEGATIVE); LEUKOCYTE ESTERASE ,URINE NEGATIVE (NEGATIVE); NITRITES,URINE NEGATIVE (NEGATIVE); PH,URINE 6.5 (5.0 - 8.0); PROTEIN,URINE 2+ (NEGATIVE); UROBILINOGEN,URINE NORMAL (NORMAL)
[2023-01-21 17:52] LABS: APPEARANCE,URINE CLEAR (CLEAR); COLOR,URINE YELLOW (YELLOW)
[2023-01-21 17:53] LABS: BACTERIA,URINE NEGATIVE /HPF (NEGATIVE); SQUAMOUS EPITHELIAL CELL,UR RARE /HPF (NEGATIVE)
[2023-01-21] MEDS: FLOMAX PO SCH (21:01)
[2023-01-22] MEDS: ZOFRAN INJ 4 MG VIAL IVP PRN ×3 (03:49→19:50)
[2023-01-22] MEDS: MORPHINE SULFATE INJ 2 MG INJ IVP PRN ×2 (03:50→10:31)
[2023-01-22 06:01] LABS: BASOPHILS % (AUTO) 0.6 % (0.2-1.0); EOSINOPHILS # (AUTO) 0.1 x10^3/uL (0.0-0.2); EOSINOPHILS % (AUTO) 1.6 % (0.9-2.9); HEMATOCRIT 46.2 % (42.0-54.0); HEMOGLOBIN 15.2 g/dL (13.5-18.0); LYMPHOCYTES # (AUTO) 1.7 X10^3/uL (1.3-2.9); LYMPHOCYTES % (AUTO) 39.8 % (21.0-51.0); MEAN CORPUSCULAR HEMOGLOBIN 29.7 pg (27.0-34.0); MEAN CORPUSCULAR VOLUME 90.1 fL (80.0-100.0); MEAN PLATELET VOLUME 10.2 fL (7.4-11.0); MONOCYTES # (AUTO) 0.4 x10^3/uL (0.3-0.8); MONOCYTES % (AUTO) 8.1 % (0.0-13.0); NEUTROPHILS # (AUTO) 2.2 x10^3/uL (2.2-4.8); NEUTROPHILS % (AUTO) 49.9 % (42.0-75.0); PLATELET COUNT 62 X10^3/uL (150.0-450.0); RED BLOOD COUNT 5.12 X10^6/uL (4.7-6.0); RED CELL DISTRIBUTION WIDTH 21.2 % (11.6-16.5); WHITE BLOOD COUNT 4.4 X10^3/uL (3.6-10.0)
[2023-01-22 06:17] LABS: ANISOCYTOSIS 1+; PLATELET MORPHOLOGY COMMENT NORMAL (NORMAL)
[2023-01-22 06:19] LABS: ALANINE AMINOTRANSFERASE 16 Units/L (12-78); ALBUMIN 2.7 g/dL (3.4-5.0); ALKALINE PHOSPHATASE 71 Units/L (46-116); ASPARTATE AMINO TRANSFERASE 25 Units/L (15-37); BLOOD UREA NITROGEN 9 mg/dL (7-18); CALCIUM 8.4 mg/dL (8.5-10.1); CARBON DIOXIDE 26.3 mmol/L (21-32); CHLORIDE 103 mmol/L (98-107); COR CA(FOR HYPOALB) 9.4 mg/dL (8.5-10.1); COR NA(FOR HYPERGLY) 139 mmol/L (136-145); CREATININE 1.06 mg/dL (0.70-1.30); GLUCOSE 114 mg/dL (65-99); POTASSIUM 3.7 mmol/L (3.5-5.1); SODIUM 139 mmol/L (136-145); TOTAL PROTEIN 5.7 g/dL (6.4-8.2); eGFR NON BLACK RACES > 60 (>60)
[2023-01-22] MEDS ORDERED: CONSULT PHARMACY - POTASSIUM & MAGNESIUM XX SCH (07:00)
[2023-01-22] MEDS ORDERED: ZESTRIL TAB 20 MG ONE (08:29)
[2023-01-22] MEDS ORDERED: LASIX IVP SCH (09:00)
[2023-01-22] MEDS ORDERED: K-DUR TAB 20 MEQ PO SCH (09:00)
[2023-01-22] MEDS: LASIX IVP SCH ×2 (09:30→18:00)
[2023-01-22] MEDS: MAG-OX TAB PO SCH ×5 (09:31→13:55)
[2023-01-22] MEDS: NS + KCL 20 MEQ/L 1,000 ML with MAGNESIUM SULFATE 50% INJ VIAL 2 G IV SCH ×2 (09:31)
[2023-01-22] MEDS: PATIENT'S HOME MEDICATION PO SCH ×3 (09:33→20:35)
[2023-01-22] MEDS: PREDNISONE TAB 5 MG PO SCH (09:36)
[2023-01-22] MEDS: ROCEPHIN VIAL 1 GRAM 1 G in NS 100 ML IV 100 ML IV SCH (09:37)
[2023-01-22] MEDS: ZESTRIL TAB 20 MG PO SCH (09:37)
[2023-01-22] MEDS: PROTONIX INJ 40 MG VIAL IVP SCH (09:37)
[2023-01-22] MEDS: ZYVOX 600MG IV 600 MG/300 ML BAG IV SCH ×2 (09:37→20:39)
[2023-01-22] MEDS ORDERED: NORCO 5/325 MG TAB PO ONE (18:40)
[2023-01-22] MEDS: FLOMAX PO SCH (20:38)
[2023-01-23] MEDS: NS + KCL 20 MEQ/L 1,000 ML with MAGNESIUM SULFATE 50% INJ VIAL 2 G IV SCH ×2 (00:41)
[2023-01-23] MEDS: ZOFRAN INJ 4 MG VIAL IVP PRN (04:22)
[2023-01-23 05:26] LABS: BASOPHILS % (AUTO) 0.6 % (0.2-1.0); EOSINOPHILS # (AUTO) 0.1 x10^3/uL (0.0-0.2); EOSINOPHILS % (AUTO) 1.3 % (0.9-2.9); HEMATOCRIT 49.7 % (42.0-54.0); HEMOGLOBIN 16.2 g/dL (13.5-18.0); LYMPHOCYTES # (AUTO) 1.9 X10^3/uL (1.3-2.9); LYMPHOCYTES % (AUTO) 42.2 % (21.0-51.0); MEAN CORPUSCULAR HEMOGLOBIN 29.5 pg (27.0-34.0); MEAN CORPUSCULAR HGB CONC 32.5 g/dL (33.0-35.0); MEAN CORPUSCULAR VOLUME 90.8 fL (80.0-100.0); MONOCYTES # (AUTO) 0.4 x10^3/uL (0.3-0.8); MONOCYTES % (AUTO) 8.5 % (0.0-13.0); NEUTROPHILS # (AUTO) 2.2 x10^3/uL (2.2-4.8); NEUTROPHILS % (AUTO) 47.4 % (42.0-75.0); PLATELET COUNT 64 X10^3/uL (150.0-450.0); RED BLOOD COUNT 5.48 X10^6/uL (4.7-6.0); RED CELL DISTRIBUTION WIDTH 21.6 % (11.6-16.5); WHITE BLOOD COUNT 4.6 X10^3/uL (3.6-10.0)
[2023-01-23 05:30] LABS: ALANINE AMINOTRANSFERASE 16 Units/L (12-78); ALBUMIN 2.8 g/dL (3.4-5.0); ALKALINE PHOSPHATASE 77 Units/L (46-116); ASPARTATE AMINO TRANSFERASE 24 Units/L (15-37); BLOOD UREA NITROGEN 9 mg/dL (7-18); CALCIUM 8.6 mg/dL (8.5-10.1); CARBON DIOXIDE 31.2 mmol/L (21-32); CHLORIDE 103 mmol/L (98-107); COR CA(FOR HYPOALB) 9.6 mg/dL (8.5-10.1); GLUCOSE 103 mg/dL (65-99); POTASSIUM 4.7 mmol/L (3.5-5.1); SODIUM 140 mmol/L (136-145); TOTAL PROTEIN 6.1 g/dL (6.4-8.2); eGFR NON BLACK RACES > 60 (>60)
[2023-01-23 06:08] LABS: ANISOCYTOSIS 1+; PLATELET MORPHOLOGY COMMENT NORMAL (NORMAL)
[2023-01-23] MEDS ORDERED: NS 1,000 ML IV 1,000 ML with MAGNESIUM SULFATE 50% INJ VIAL 1 G IV SCH ×2 (08:00)
[2023-01-23] MEDS ORDERED: COLACE CAP 100 MG PO ONE (08:35)
[2023-01-23] MEDS: LASIX IVP SCH (08:36)
[2023-01-23] MEDS ORDERED: ZESTRIL TAB 20 MG ONE (08:45)
[2023-01-23] MEDS: PATIENT'S HOME MEDICATION PO SCH ×2 (08:57→08:58)
[2023-01-23] MEDS: ZESTRIL TAB 20 MG PO SCH (09:00)
[2023-01-23] MEDS: PROTONIX INJ 40 MG VIAL IVP SCH (09:00)
[2023-01-23] MEDS: PREDNISONE TAB 5 MG PO SCH (09:00)
[2023-01-23] MEDS: ROCEPHIN VIAL 1 GRAM 1 G in NS 100 ML IV 100 ML IV SCH (09:01)
[2023-01-23] MEDS: ZYVOX 600MG IV 600 MG/300 ML BAG IV SCH (09:01)
[2023-01-23] MEDS: MORPHINE SULFATE INJ 2 MG INJ IVP PRN ×2 (09:19→13:36)
--- NOTE | 2023-01-23 10:09 | RAD ---
EXAM:CHEST, 1 VIEWHISTORY:SOB;COMPARISON:Chest radiograph 01/21/2023.TECHNIQUE:AP view of the chestFINDINGS:Cardiac silhouette is mildly enlarged if this is a PA view. There is pulmonary vascular congestion. Mild interstitial opacities remain. No definite pleural effusion pneumothorax.IMPRESSION:No significant change.THIS IS AN ELECTRONICALLY VERIFIED FINAL [id number]/23/2023 10:05 AM - Electronically signed by Trey Choi MD
[2023-01-23] MEDS ORDERED: LASIX IVP ONE (11:02)
[2023-01-23 12:35] VITALS: PULSE 111
[2023-01-23 13:08] VITALS: BP 104/78; TEMP 97.9; O2SAT 92
[2023-01-23 13:37] VITALS: RESP 18
== END 2023-01-23 13:30 | disposition short-term general hospital (02) | DRG 690 ==
LOC: MED/SURG 12:50 → ICU 01-22 11:00
PROVIDERS: ADMIT Internal Medicine; ATTEND Internal Medicine
DX: N28.89 Other specified disorders of kidney and ureter; T81.49XA Infection following a procedure, other surgical site, initial encounter; R79.1 Abnormal coagulation profile; R31.9 Hematuria, unspecified; R73.09 Other abnormal glucose; R06.02 Shortness of breath; E83.42 Hypomagnesemia; E86.0 Dehydration; N39.0 Urinary tract infection, site not specified; R10.84 Generalized abdominal pain; B95.7 Other staphylococcus as the cause of diseases classified elsewhere; Z79.4 Long term (current) use of insulin

== ENCOUNTER 2023-12-30 12:20 | Inpatient (IN) ==
[2023-12-30] MEDS: NS 1,000 ML IV 1,000 ML IV SCH (14:42)
[2023-12-30 15:05] VITALS: BMI 26.6
[2023-12-30 15:17] LABS: BASOPHILS % (AUTO) 0.3 % (0.2-1.0); EOSINOPHILS % (AUTO) 0.2 % (0.9-2.9); HEMATOCRIT 47.1 % (42.0-54.0); HEMOGLOBIN 15.7 g/dL (13.5-18.0); LYMPHOCYTES # (AUTO) 0.3 X10^3/uL (1.3-2.9); LYMPHOCYTES % (AUTO) 5.6 % (21.0-51.0); MEAN CORPUSCULAR HEMOGLOBIN 27.3 pg (27.0-34.0); MEAN CORPUSCULAR HGB CONC 33.3 g/dL (33.0-35.0); MEAN CORPUSCULAR VOLUME 81.8 fL (80.0-100.0); MEAN PLATELET VOLUME 6.4 fL (7.4-11.0); MONOCYTES # (AUTO) 0.1 x10^3/uL (0.3-0.8); MONOCYTES % (AUTO) 2.7 % (0.0-13.0); NEUTROPHILS # (AUTO) 4.9 x10^3/uL (2.2-4.8); NEUTROPHILS % (AUTO) 91.2 % (42.0-75.0); PLATELET COUNT 132 X10^3/uL (150.0-450.0); RED BLOOD COUNT 5.76 X10^6/uL (4.7-6.0); RED CELL DISTRIBUTION WIDTH 19.3 % (11.6-16.5); WHITE BLOOD COUNT 5.4 X10^3/uL (3.6-10.0)
[2023-12-30 15:30] LABS: ALANINE AMINOTRANSFERASE 27 Units/L (12-78); ALBUMIN 3.9 g/dL (3.4-5.0); ALKALINE PHOSPHATASE 81 Units/L (46-116); ASPARTATE AMINO TRANSFERASE 22 Units/L (15-37); BLOOD UREA NITROGEN 15 mg/dL (7-18); CALCIUM 8.2 mg/dL (8.5-10.1); CARBON DIOXIDE 27.1 mmol/L (21-32); CHLORIDE 98 mmol/L (98-107); COR NA(FOR HYPERGLY) 136 mmol/L (136-145); CREATININE 1.23 mg/dL (0.70-1.30); GLUCOSE 192 mg/dL (65-99); MAGNESIUM 1.7 mg/dL (2.0-2.9); POTASSIUM 3.6 mmol/L (3.5-5.1); SODIUM 134 mmol/L (136-145); eGFR NON BLACK RACES > 60 (>60)
[2023-12-30 15:43] LABS: ANISOCYTOSIS SLIGHT; PLATELET MORPHOLOGY COMMENT NORMAL (NORMAL)
[2023-12-30] MEDS: LOVENOX INJ 40 MG SYR SC SCH (16:36)
[2023-12-30] MEDS: NovoLIN R (or HumuLIN R) SUBCUT PRN (17:27)
[2023-12-30] MEDS: AMBRISENTAN 10 MG PO SCH (17:37)
--- NOTE | 2023-12-30 17:37 | DR.H&P ---
H&P History & Physical for Day of: H&P Date: 12/30/23 Chief Complaint Chief Complaint: right side abdominal pain, fever, n/v/d History of Present Illness History of Present Illness: PT IS 53 WM, DIRECT ADMIT FROM DR FONSECA OFFICE WITH FAILED OUTPT FOR PNEUMONIA AND ABDOMINAL PAIN IN LIVER TRANSPLANT. PT HAD OP XRAYS AND WAS GIVEN PO ROUND OF ANTIBIOTICS, IM TORADOL FOR PAIN CONTROL AND PO OXYCODONE WITHOUT RELIEF. PT IS UNDER THE CARE OF [facility] IN [facility] FOR TRANSPLANT MANAGMENT AND WAS INSTRUCTED TO FU WITH PCP FOR TREATMENT AND EVALUATION OF FEBRILE ILLNESS. PT HAS PMH OF PULMONARY HYPERTENSION, DM, HTN, LIVER DISEASE AND ANEMIA. Past Medical History Past Medical History: Arthritis, Diabetes, Headaches, Hypertension and Liver Disease Additional Medical History: S/P LIVER TRANSPLANT 2020 Past Surgical History Surgical History: Cholecystectomy and Organ Transplant Additional Surgical History: LIVER TRANSPLANT 2020 HERNIA REPAIR 12/12 Family History Family Medical History: Diabetes Mellitus and [place] Social History Alcohol Use: None Drug Use: None Medications Home Medications: Home Medications Medication Instructions Recorded Confirmed Type esomeprazole magnesium 40 mg 40 mg PO DAILY 06/22/19 12/30/23 History capsule,delayed release (Nexium) everolimus (immunosuppressive) 0.5 2 mg PO BID 01/18/23 12/30/23 History mg tablet multivitamin 1 tab PO DAILY 01/18/23 12/30/23 History mycophenolate mofetil 250 mg 500 mg PO BID 01/18/23 12/30/23 History capsule prednisone 5 mg tablet 10 mg PO DAILY 01/18/23 12/30/23 History furosemide 40 mg tablet 40 mg PO DAILY 03/10/23 12/30/23 History sildenafil 25 mg tablet 20 mg PO TID 03/10/23 12/30/23 History ambrisentan 10 mg tablet 10 mg PO QDAY 12/30/23 12/30/23 History tenofovir disoproxil fumarate 300 300 mg PO DAILY 12/30/23 12/30/23 History mg tablet Allergies Allergies Allergy/AdvReac Type Severity Reaction Status Date / Time No Known Drug Allergies Allergy Verified 03/28/23 15:57 [id number] Antimigraine AdvReac Verified 03/28/23 15:57 Agents Labs 12/30/23 14:55 12/30/23 14:55 Labs: Laboratory WBC 5.4 X10^3/uL (3.6-10.0) 12/30/23 14:55 RBC 5.76 X10^6/uL (4.7-6.0) 12/30/23 14:55 Hgb 15.7 g/dL (13.5-18.0) 12/30/23 14:55 Hct 47.1 % (42.0-54.0) 12/30/23 14:55 MCV 81.8 fL (80.0-100.0) 12/30/23 14:55 MCH 27.3 pg (27.0-34.0) 12/30/23 14:55 MCHC 33.3 g/dL (33.0-35.0) 12/30/23 14:55 RDW 19.3 % (11.6-16.5) H 12/30/23 14:55 Plt Count 132 X10^3/uL (150.0-450.0) L 12/30/23 14:55 Plt Count Comment Decreased (ADEQUATE) 12/30/23 14:55 MPV 6.4 fL (7.4-11.0) L 12/30/23 14:55 Neut % (Auto) 91.2 % (42.0-75.0) H 12/30/23 14:55 Lymph % (Auto) 5.6 % (21.0-51.0) L 12/30/23 14:55 [place] % (Auto) 2.7 % (0.0-13.0) 12/30/23 14:55 Eos % (Auto) 0.2 % (0.9-2.9) L 12/30/23 14:55 Baso % (Auto) 0.3 % (0.2-1.0) 12/30/23 14:55 Neut # (Auto) 4.9 x10^3/uL (2.2-4.8) H 12/30/23 14:55 Lymph # (Auto) 0.3 X10^3/uL (1.3-2.9) L 12/30/23 14:55 [place] # (Auto) 0.1 x10^3/uL (0.3-0.8) L 12/30/23 14:55 Eos # (Auto) 0.0 x10^3/uL (0.0-0.2) 12/30/23 14:55 Baso # (Auto) 0.0 X10^3/uL (0.0-0.1) 12/30/23 14:55 Absolute Nucleated RBC 0.5 /100WBC 12/30/23 14:55 Total Counted 100 12/30/23 14:55 Neutrophils % (Manual) 93 % (39-76) H 12/30/23 14:55 Lymphocytes % (Manual) 5 % (13-43) L 12/30/23 14:55 Monocytes % (Manual) 2 % (4-9) L 12/30/23 14:55 Plt Morphology Comment Normal (NORMAL) 12/30/23 14:55 RBC Morphology Abnormal (NORMAL) 12/30/23 14:55 Anisocytosis Slight A 12/30/23 14:55 PT 14.0 SECONDS (11.8-14.3) 12/30/23 14:55 INR Target Range - 12/30/23 14:55 INR 1.10 (0.8-1.3) 12/30/23 14:55 Sodium 134 mmol/L (136-145) L 12/30/23 14:55 Corrected Sodium 136 mmol/L (136-145) 12/30/23 14:55 Potassium 3.6 mmol/L (3.5-5.1) 12/30/23 14:55 Chloride 98 mmol/L (98-107) 12/30/23 14:55 Carbon Dioxide 27.1 mmol/L (21-32) 12/30/23 14:55 BUN 15 mg/dL (7-18) 12/30/23 14:55 Creatinine 1.23 mg/dL (0.70-1.30) 12/30/23 14:55 Est GFR (MDRD) Af Amer > 60 (>60) 12/30/23 14:55 Est GFR (MDRD) Non-Af > 60 (>60) 12/30/23 14:55 Glucose 192 mg/dL (65-99) H 12/30/23 14:55 POC Glucose (mg/dL) 194 mg/dL (65-99) H 12/30/23 16:38 Calcium 8.2 mg/dL (8.5-10.1) L 12/30/23 14:55 Corrected Calcium TNP 12/30/23 14:55 Magnesium 1.7 mg/dL (2.0-2.9) L 12/30/23 14:55 Total Bilirubin 1.80 mg/dL (0.2-1.0) H 12/30/23 14:55 AST 22 Units/L (15-37) 12/30/23 14:55 ALT 27 Units/L (12-78) 12/30/23 14:55 Alkaline Phosphatase 81 Units/L (46-116) 12/30/23 14:55 Total Protein 7.0 g/dL (6.4-8.2) 12/30/23 14:55 Albumin 3.9 g/dL (3.4-5.0) 12/30/23 14:55 Globulin 3.1 g/dL (2.5-4.5) 12/30/23 14:55 Albumin/Globulin Ratio 1.3 Ratio (1.1-2.1) 12/30/23 14:55 Review of Systems Constitutional: Fever and Weakness Eyes: No Symptoms Reported ENT: No Symptoms Reported Respiratory: SOB with Excertion and Pleuritic Pain Cardiovascular: Edema Gastrointestinal: Nausea, Vomiting, Abdominal Pain and Diarrhea Genitourinary: No Symptoms Reported Musculoskeletal: Back Pain and Neck Pain Skin: No Symptoms Reported Neurological: Weakness and Other (HEADACHES) Physical Exam Vital Signs: Vital Signs Temperature 98.1 F Temperature 98.1 F Pulse Rate [Brachial] 94 Pulse Rate [Brachial] 103 Respiratory Rate 20 Respiratory Rate 20 Blood Pressure [Left Arm] 125/80 Blood Pressure [Left Arm] 132/85 O2 Sat by Pulse Oximetry 98 O2 Sat by Pulse Oximetry 94 Oriented: Normal Eyes: Normal Ear: Normal Throat: Normal Respiratory: LLL Diminished Cardiovascular: Edema Auscultation: Bowel Sounds: Normal Palpation: Spleen Enlarged and Liver Enlarged Tenderness: Diffuse Skin: Normal Musculoskeletal: Back:Lumbar Psychiatric: Normal Mood Description: Calm Affect: Normal Speech Pattern: Clear and Appropriate Assessment/Plan (1) Pneumonia: Narrative Support Text: ADMIT, IV HYDRATION, RESP CONSULT PRN DUO NEBS PAIN CONTROL VERIFY AND RESUME HOME MEDICATION IV ATBX, BP CONTROL ABD XRAY AND ABD US RECOMMENDED BY TRANSPLAN TEAM BS CONTROL Status: Acute (2) Liver transplant failure: Status: Acute (3) History of liver transplant: Status: Acute (4) Diabetes: Status: Chronic (5) Hypertension, uncontrolled: Status: Acute
[2023-12-30] MEDS: ROCEPHIN VIAL 1 GRAM 1 G in NS 100 ML IV 100 ML IV SCH (17:57)
[2023-12-30] MEDS ORDERED: CONSULT PHARMACY - POTASSIUM & MAGNESIUM XX SCH (19:00)
[2023-12-30] MEDS: PULMICORT NEB TX 0.5 MG NEB SCH (20:07)
[2023-12-30] MEDS: K-DUR TAB 20 MEQ PO ONE (20:48)
[2023-12-30] MEDS: MAG-OX TAB PO SCH (20:48)
[2023-12-30] MEDS: SNACK - Diabetic Appropriate PO SCH (20:49)
[2023-12-30] MEDS: EVEROLIMUS 0.5 MG PO SCH (21:04)
[2023-12-30] MEDS: MYCOPHENOLATE MOFETIL 250 MG PO SCH (21:05)
[2023-12-30] MEDS: SILDENAFIL 25 MG PO SCH (21:05)
[2023-12-31 05:49] LABS: BASOPHILS % (AUTO) 0.4 % (0.2-1.0); HEMATOCRIT 43.1 % (42.0-54.0); HEMOGLOBIN 14.7 g/dL (13.5-18.0); LYMPHOCYTES # (AUTO) 0.7 X10^3/uL (1.3-2.9); LYMPHOCYTES % (AUTO) 17.8 % (21.0-51.0); MEAN CORPUSCULAR HEMOGLOBIN 27.6 pg (27.0-34.0); MEAN CORPUSCULAR HGB CONC 34.1 g/dL (33.0-35.0); MEAN CORPUSCULAR VOLUME 80.8 fL (80.0-100.0); MEAN PLATELET VOLUME 6.5 fL (7.4-11.0); MONOCYTES # (AUTO) 0.3 x10^3/uL (0.3-0.8); MONOCYTES % (AUTO) 7.5 % (0.0-13.0); NEUTROPHILS # (AUTO) 2.8 x10^3/uL (2.2-4.8); NEUTROPHILS % (AUTO) 73.3 % (42.0-75.0); PLATELET COUNT 127 X10^3/uL (150.0-450.0); RED BLOOD COUNT 5.33 X10^6/uL (4.7-6.0); RED CELL DISTRIBUTION WIDTH 19.4 % (11.6-16.5); WHITE BLOOD COUNT 3.9 X10^3/uL (3.6-10.0)
[2023-12-31 06:08] LABS: ALANINE AMINOTRANSFERASE 24 Units/L (12-78); ALBUMIN 3.4 g/dL (3.4-5.0); ALKALINE PHOSPHATASE 72 Units/L (46-116); ASPARTATE AMINO TRANSFERASE 22 Units/L (15-37); BLOOD UREA NITROGEN 15 mg/dL (7-18); CALCIUM 7.7 mg/dL (8.5-10.1); CARBON DIOXIDE 26.6 mmol/L (21-32); CHLORIDE 102 mmol/L (98-107); COR NA(FOR HYPERGLY) 136 mmol/L (136-145); CREATININE 1.02 mg/dL (0.70-1.30); GLUCOSE 116 mg/dL (65-99); MAGNESIUM 1.8 mg/dL (2.0-2.9); POTASSIUM 3.2 mmol/L (3.5-5.1); SODIUM 136 mmol/L (136-145); TOTAL PROTEIN 6.1 g/dL (6.4-8.2); eGFR NON BLACK RACES > 60 (>60)
[2023-12-31] MEDS ORDERED: CONSULT PHARMACY - POTASSIUM & MAGNESIUM XX SCH (07:00)
--- NOTE | 2023-12-31 07:53 | RAD ---
EXAMINATION:ACUTE ABDOMEN SERI ESHISTORY:RUQ PAIN; .COMPARISON STUDY:Abdominal series 12/18/2022TECHNIQUE:Single frontal view of the chest and two views of the abdomenFINDINGS:Lungs are expanded. Mild cardiac silhouette enlargement. Enlarged central pulmonary artery suspicious for pulmonary arterial hypertension. Mark catheter left chest with distal catheter along the SVC/right atrium.Mild amount of feces throughout the colon. The far lateral aspects of the right and left abdomen were not included on the views. No evidence of intraperitoneal free air. The visualized soft tissue outlines and osseous structures appear intact. Multiple surgical clips right upper abdomen.IMPRESSION:Mild amount of feces throughout the imaged colon.Mild cardiomegaly.Enlarged central pulmonary arteries suspicious for pulmonary arterial hypertension.THIS IS AN ELECTRONICALLY VERIFIED FINAL REPORT12/31/2023 7:49 AM - Electronically signed by Yu Hernández MD
[2023-12-31] MEDS ORDERED: ROXICODONE TAB 5 MG PO PRN (08:13)
[2023-12-31 08:26] LABS: AMYLASE 95 Units/L (25-115); LIPASE 61 Units/L (16-77)
[2023-12-31] MEDS ORDERED: K-RIDER 10 MEQ/100 ML WATER 10 MEQ/100 ML BAG IV SCH (09:00)
[2023-12-31] MEDS ORDERED: MAGNESIUM SULFATE 1 GRAM/100 mL PREMIX 1 G/100 ML BAG IV SCH (09:00)
[2023-12-31] MEDS: PREDNISONE TAB 5 MG PO SCH (09:49)
[2023-12-31] MEDS: NexIUM PO SCH (09:49)
[2023-12-31] MEDS: LASIX PO SCH (09:49)
[2023-12-31] MEDS: TAB-A-VITE PO SCH (09:49)
[2023-12-31] MEDS: TENOFOVIR DISOPROXIL FUMARATE 300 MG PO SCH (09:50)
--- NOTE | 2023-12-31 10:56 | US ---
EXAM:ABDOMEN ultrasoundHISTORY:LIVER FAILURE, HX S/P LIVER TRANSPLANT, FEVER -COMPARISON:X-ray 12/30/2023TECHNIQUE:Multiple carrillo scale and color flow Doppler images of the abdomen were obtained with image documentation.FINDINGS:No hepatic abnormality is seen. Hepatopetal portal venous flow is seen on Doppler ultrasound. Hepatic artery is patent and there is hepatofugal hepatic venous flow.1.5 cm anechoic structure is seen in the cedric hepatis which may be a small seroma.Prior cholecystectomy. No biliary ductal dilation.Pancreas is obscured due to bowel gas.There is splenomegaly. Spleen measures 15.0 cm in length.No renal abnormality. Right kidney measures 12.4 cm in length and left kidney measures 13.2 cm in length.Visualized portions of the IVC appear normal. Abdominal aorta is obscured due to bowel gas.IMPRESSION:No hepatic abnormality is seen. There is splenomegaly.There is a 1.5 cm anechoic structure in the cedric hepatis which could be a small seroma.THIS IS AN ELECTRONICALLY VERIFIED FINAL REPORT12/31/2023 10:52 AM - Electronically signed by Ramon Sandoval MD
[2023-12-31] MEDS: K-DUR TAB 20 MEQ PO SCH (13:39)
[2023-12-31] MEDS: MAG-OX TAB PO SCH (13:39)
[2023-12-31] MEDS: REVATIO PO SCH (13:40)
[2023-12-31] MEDS: LOMOTIL PO PRN (16:43)
[2023-12-31 16:51] LABS: CRYPTOSPORIDIUM PARVUM ANTIGEN NEGATIVE (NEGATIVE); GIARDIA LAMBLIA ANTIGEN NEGATIVE (NEGATIVE)
[2023-12-31] MEDS: MORPHINE SULFATE INJ 2 MG INJ IVP PRN (16:52)
--- NOTE | 2023-12-31 17:42 | PCM.PROG ---
Progress Note Progress Note for Day of Date of Exam: 12/31/23 Subjective Subjective: The 53-year-old male with a history of liver transplant, pulmonary hypertension, diabetes mellitus, hypertension, and anemia continues to be treated for pneumonia and abdominal pain after failing outpatient therapy. An abdominal ultrasound was added today for further evaluation of abdominal pain, and he is currently receiving IV Rocephin. Pain management has been adjusted with the addition of PO oxycodone for better symptom control. The care plan continues to focus on IV hydration, respiratory support with PRN DuoNebs, blood pressure control, and resuming home medications as appropriate. Past Medical Family Social History Allergies: Allergies No Known Drug Allergies Allergy (Verified 03/28/23 15:57) [id number] Antimigraine Agents Adverse Reaction (Verified 03/28/23 15:57) Vital Signs and I&O's Vital Signs: Vital Signs Temperature 98.3 F Temperature 97.9 F Pulse Rate [Brachial] 92 Pulse Rate [Brachial] 103 Pulse Rate 100 Respiratory Rate 21 Respiratory Rate 21 Blood Pressure [Left Arm] 131/84 Blood Pressure [Left Arm] 120/78 O2 Sat by Pulse Oximetry 97 O2 Sat by Pulse Oximetry 93 O2 Sat by Pulse Oximetry 97 Intake and Output: Intake & Output 12/29/23 12/30/23 12/31/23 01/01/24 11:59 11:59 11:59 11:59 Intake Total 986 / 986 Balance 986 / 986 Physical Exam Oriented: Normal Eyes: Normal Ear: Normal Throat: Normal Cardiovascular: Edema Auscultation: Bowel Sounds: Normal Tenderness: Diffuse Skin: Normal Musculoskeletal: Back:Lumbar Psychiatric: Normal Mood Description: Calm Affect: Normal Speech Pattern: Clear and Appropriate Laboratory and Diagnostics 12/31/23 05:10 12/31/23 05:10 Labs: 12/30/23 15:55 Urine,Clean Catch Urine Culture - Preliminary Laboratory WBC 3.9 X10^3/uL (3.6-10.0) 12/31/23 05:10 RBC 5.33 X10^6/uL (4.7-6.0) 12/31/23 05:10 Hgb 14.7 g/dL (13.5-18.0) 12/31/23 05:10 Hct 43.1 % (42.0-54.0) 12/31/23 05:10 MCV 80.8 fL (80.0-100.0) 12/31/23 05:10 MCH 27.6 pg (27.0-34.0) 12/31/23 05:10 MCHC 34.1 g/dL (33.0-35.0) 12/31/23 05:10 RDW 19.4 % (11.6-16.5) H 12/31/23 05:10 Plt Count 127 X10^3/uL (150.0-450.0) L 12/31/23 05:10 Plt Count Comment Decreased (ADEQUATE) 12/30/23 14:55 MPV 6.5 fL (7.4-11.0) L 12/31/23 05:10 Neut % (Auto) 73.3 % (42.0-75.0) 12/31/23 05:10 Lymph % (Auto) 17.8 % (21.0-51.0) L 12/31/23 05:10 [place] % (Auto) 7.5 % (0.0-13.0) 12/31/23 05:10 Eos % (Auto) 1.0 % (0.9-2.9) 12/31/23 05:10 Baso % (Auto) 0.4 % (0.2-1.0) 12/31/23 05:10 Neut # (Auto) 2.8 x10^3/uL (2.2-4.8) 12/31/23 05:10 Lymph # (Auto) 0.7 X10^3/uL (1.3-2.9) L 12/31/23 05:10 [place] # (Auto) 0.3 x10^3/uL (0.3-0.8) 12/31/23 05:10 Eos # (Auto) 0.0 x10^3/uL (0.0-0.2) 12/31/23 05:10 Baso # (Auto) 0.0 X10^3/uL (0.0-0.1) 12/31/23 05:10 Absolute Nucleated RBC 0.3 /100WBC 12/31/23 05:10 Total Counted 100 12/30/23 14:55 Neutrophils % (Manual) 93 % (39-76) H 12/30/23 14:55 Lymphocytes % (Manual) 5 % (13-43) L 12/30/23 14:55 Monocytes % (Manual) 2 % (4-9) L 12/30/23 14:55 Plt Morphology Comment Normal (NORMAL) 12/30/23 14:55 RBC Morphology Abnormal (NORMAL) 12/30/23 14:55 Anisocytosis Slight A 12/30/23 14:55 PT 14.0 SECONDS (11.8-14.3) 12/30/23 14:55 INR Target Range - 12/30/23 14:55 INR 1.10 (0.8-1.3) 12/30/23 14:55 Sodium 136 mmol/L (136-145) 12/31/23 05:10 Corrected Sodium 136 mmol/L (136-145) 12/31/23 05:10 Potassium 3.2 mmol/L (3.5-5.1) L 12/31/23 05:10 Chloride 102 mmol/L (98-107) 12/31/23 05:10 Carbon Dioxide 26.6 mmol/L (21-32) 12/31/23 05:10 BUN 15 mg/dL (7-18) 12/31/23 05:10 Creatinine 1.02 mg/dL (0.70-1.30) 12/31/23 05:10 Est GFR (MDRD) Af Amer > 60 (>60) 12/31/23 05:10 Est GFR (MDRD) Non-Af > 60 (>60) 12/31/23 05:10 Glucose 116 mg/dL (65-99) H 12/31/23 05:10 POC Glucose (mg/dL) 141 mg/dL (65-99) H 12/31/23 11:03 Calcium 7.7 mg/dL (8.5-10.1) L 12/31/23 05:10 Corrected Calcium TNP 12/31/23 05:10 Magnesium 1.8 mg/dL (2.0-2.9) L 12/31/23 05:10 Total Bilirubin 1.30 mg/dL (0.2-1.0) H 12/31/23 05:10 AST 22 Units/L (15-37) 12/31/23 05:10 ALT 24 Units/L (12-78) 12/31/23 05:10 Alkaline Phosphatase 72 Units/L (46-116) 12/31/23 05:10 Total Protein 6.1 g/dL (6.4-8.2) L 12/31/23 05:10 Albumin 3.4 g/dL (3.4-5.0) 12/31/23 05:10 Globulin 2.7 g/dL (2.5-4.5) 12/31/23 05:10 Albumin/Globulin Ratio 1.3 Ratio (1.1-2.1) 12/31/23 05:10 Amylase 95 Units/L (25-115) 12/31/23 05:10 Lipase 61 Units/L (16-77) 12/31/23 05:10 Plan (1) Pneumonia: Status: Acute Plan: 1. Continue IV Rocephin 2. Administer PO oxycodone for pain management. 3. Perform abdominal ultrasound to evaluate abdominal pain. 4. Continue IV hydration and monitor fluid status. 5. Provide PRN DuoNebs for respiratory support. 6. Monitor blood pressure/glucose and manage as needed. 7. Resume home medications as appropriate. (2) Liver transplant failure: Status: Acute (3) History of liver transplant: Status: Acute (4) Diabetes: Status: Chronic (5) Hypertension, uncontrolled: Status: Acute
[2023-12-31] MEDS: ZITHROMAX TAB 250 MG PO SCH (17:46)
[2024-01-01 06:23] LABS: BASOPHILS % (AUTO) 0.4 % (0.2-1.0); EOSINOPHILS % (AUTO) 0.9 % (0.9-2.9); HEMATOCRIT 42.8 % (42.0-54.0); HEMOGLOBIN 14.3 g/dL (13.5-18.0); LYMPHOCYTES # (AUTO) 0.4 X10^3/uL (1.3-2.9); LYMPHOCYTES % (AUTO) 8.7 % (21.0-51.0); MEAN CORPUSCULAR HEMOGLOBIN 27.5 pg (27.0-34.0); MEAN CORPUSCULAR HGB CONC 33.4 g/dL (33.0-35.0); MEAN CORPUSCULAR VOLUME 82.4 fL (80.0-100.0); MEAN PLATELET VOLUME 6.6 fL (7.4-11.0); MONOCYTES # (AUTO) 0.3 x10^3/uL (0.3-0.8); MONOCYTES % (AUTO) 6.6 % (0.0-13.0); NEUTROPHILS # (AUTO) 3.5 x10^3/uL (2.2-4.8); NEUTROPHILS % (AUTO) 83.4 % (42.0-75.0); PLATELET COUNT 117 X10^3/uL (150.0-450.0); RED BLOOD COUNT 5.19 X10^6/uL (4.7-6.0); RED CELL DISTRIBUTION WIDTH 19.4 % (11.6-16.5); WHITE BLOOD COUNT 4.2 X10^3/uL (3.6-10.0)
[2024-01-01 06:46] LABS: ALANINE AMINOTRANSFERASE 22 Units/L (12-78); ALBUMIN 3.3 g/dL (3.4-5.0); ALKALINE PHOSPHATASE 73 Units/L (46-116); ASPARTATE AMINO TRANSFERASE 18 Units/L (15-37); BLOOD UREA NITROGEN 12 mg/dL (7-18); CALCIUM 7.8 mg/dL (8.5-10.1); CARBON DIOXIDE 22.6 mmol/L (21-32); CHLORIDE 102 mmol/L (98-107); COR CA(FOR HYPOALB) 8.4 mg/dL (8.5-10.1); COR NA(FOR HYPERGLY) 134 mmol/L (136-145); CREATININE 0.91 mg/dL (0.70-1.30); GLUCOSE 136 mg/dL (65-99); MAGNESIUM 1.9 mg/dL (2.0-2.9); POTASSIUM 3.7 mmol/L (3.5-5.1); SODIUM 133 mmol/L (136-145); TOTAL PROTEIN 6.2 g/dL (6.4-8.2); eGFR NON BLACK RACES > 60 (>60)
[2024-01-01 09:19] VITALS: BP 131/70; PULSE 95; RESP 21; TEMP 98.2; O2SAT 95
[2024-01-01] MEDS: MAG-OX TAB PO SCH (10:08)
[2024-01-01] MEDS: K-DUR TAB 20 MEQ PO SCH (10:08)
--- NOTE | 2024-01-01 11:04 | CT ---
EXAMINATION:CHEST WITH CONTRASTHISTORY:FOLLOW UP LIVER TRANSPLANT, ABD PAIN ; .COMPARISON:CTA chest 01/18/2023TECHNIQUE:Routine axial imaging of the chest was performed. Postcontrast CT chest was performed. The above CT scan was done with automated exposure control and the mA and kV was adjusted to obtain quality images according to patient size.FINDINGS:Lungs: There is dependent atelectasis. Bronchial thickening is noted. There is an air cyst in the left apex unchanged. No acute infiltrates, pulmonary nodules, interstitial changes or ground-glass opacities.Central Airways: No obstructing endobronchial lesionsPleura: No pleural effusion or pneumothoraxThoracic Aorta: Tapers and enhances normallyMain Pulmonary Trunk: Enlarged measuring 3.9 cm suggesting pulmonary arterial hypertensionLymph Nodes: No pathologic hilar, axillary or mediastinal adenopathyHeart/Pericardium: Cardiomegaly. No significant pericardial effusion. Pericardial thickening noted.Liver: Status post liver transplant. No focal lesions or perihepatic fluid noted.GB/Biliary: Cholecystectomy. No dilated ductSpleen: Splenomegaly with multiple varicesPancreas: No acute findings as visualizedAdrenal Glands: No massKidneys no hydronephrosis.Abdominal Aorta: Tapers normally atherosclerotic calcificationRetroperitoneum: No pathologic lymphadenopathyBowel/Peritoneal Cavity: No acute findings as visualized.Osseous Structures: Degenerative changes in the thoracolumbar spine. No acute findings or bony lesions.Other: NoneIMPRESSION:No acute process in the chest.Air cyst in the left apex unchanged. This may be postinfectious.Enlarged main pulmonary artery suggesting pulmonary arterial hypertension.The above CT scan was done with automated exposure control and the mA and kV was adjusted to obtain quality images according to patient sizeTHIS IS AN ELECTRONICALLY VERIFIED FINAL REPORT01/01/2024 11:01 AM - Electronically signed by Ramon Angulo MD
--- NOTE | 2024-01-01 13:22 | CT ---
EXAM: ABDCMEN/PELVIS WITH CON HISTORY: FOLLOW UP LIVER TRANSPLANT, ABD PAIN ; COMPARISON: No relevant prior studies were available for comparison at the time of interpretation.. TECHNIQUE: CT images were obtained. Multiplanar reconstructions were created on a separate workstation and used during interpretation. All CT scans at this facility is dose modulation, iterative reconstruction, an d/or weight-based dosing as appropriate to reduce radiation to levels as low as reasonably achievable (ALARA). Postprocessing details, radiation dose, and contrast dose (if applicable) are recorded in t he patient's medical record. FINDINGS: Lower chest: Lung bases are clear. No acute cardiac abnormality. ABDOMEN: Liver: Transplant liver is in expected position. Gallbladder: Status post cholecystectomy. Pancreas: No mass or ductal dilation. Spleen: Normal morphology. Splenomegaly. Adrenal glands: No suspicious mass. No hemorrhage. Kidneys: Normal size and morphology. No hydronephrosis. No obstructing calculus. No solid mass. Upper GI: Normal caliber and wall thickness Small bowel: No evidence of high-grade obstruction Large bowel: Normal caliber and wall thickness Appendix: Normal caliber and wall thickness. Peritoneum: No free air or significant free fluid Lymph nodes: No enlarged abdominal lymph nodes. Vasculature: No significant vascular abnormality. PELVIS: Bladder: Bladder is intact and unremarkable. Reproductive System: No acute reproductive organ abnormality. EXTRAPERITONEAL TISSUES: Abdominal wall: No acute abnormality Musculoskeletal: No acute osseous abnormality. No destructive bony lesion. Other soft tissues: Unremarkable IMPRESSION: 1. Expected appearance of transplant liver. 2. No acute intra-abdominal abnormality THIS IS AN ELECTRONICALLY VERIFIED FINAL REPORT 01/01/2024 1:18 PM - Electronically signed by Wei Ponce MD
== END 2024-01-01 11:30 | disposition home or self-care (01) | DRG 194 ==
LOC: MED/SURG 13:02
PROVIDERS: ADMIT Internal Medicine; ATTEND Internal Medicine
DX: A04.5 Campylobacter enteritis; R10.84 Generalized abdominal pain; Z65.8 Other specified problems related to psychosocial circumstances; E83.42 Hypomagnesemia; E87.1 Hypo-osmolality and hyponatremia; K72.90 Hepatic failure, unspecified without coma; J18.8 Other pneumonia, unspecified organism; A04.72 Enterocolitis due to Clostridium difficile, not specified as recurrent; E11.65 Type 2 diabetes mellitus with hyperglycemia